=== PATIENT | male | born 1935 | race Caucasian/White ===

== ENCOUNTER 2016-06-01 00:04 | Emergency (ER) | payer OTHER ==
[~2016-06-01] VITALS: Ht 182.9 cm; Wt 69.0 kg
[~2016-06-01 00:04] MED LIST: ACET-1256 PO; ALPR-411 PO; ALPR0.25 PO; ASPI1TAB83 PO; CHOL100010 PO; CITA20TA9 PO; DOCU100C31 PO; DONE10TA12 PO; FLUC200T PO; HYDR-5688 PO; LPT/40 PO; QUET1TAB34 PO; SALI0.6517 NAE; SLSS TOP; SNM/25100 PO; TAMS0.4C38 PO
[2016-06-01 00:12] VITALS: TEMP 36.6; Ht 182.9 cm; Wt 69.0 kg
[2016-06-01] MEDS ORDERED: CHOL1000 PO (00:34)
[2016-06-01] MEDS ORDERED: SELE1SHA3 EXT (00:36)
[2016-06-01] MEDS ORDERED: PIMA17TA PO (00:40)
[2016-06-01] MEDS ORDERED: KETO0.0216 OPB (00:43)
[2016-06-01] MEDS ORDERED: SALI1SPR15 NAE (00:45)
[2016-06-01] MEDS ORDERED: MIRT15TA2 PO (00:46)
[2016-06-01] MEDS ORDERED: COCO1OIL2 EXT (00:51)
[2016-06-01] MEDS ORDERED: ACETAMINOPHEN 500 MG TAB PO STA (01:00)
[2016-06-01 01:33] LABS: BASO % 0.5 %; BASO ABS # 0.04 K/uL (0-0.2); COMPLETE YES; EOS % 2.6 %; HEMATOCRIT 39.7 % (42-52); IG% 0.3 %; LYMPH % 22.6 %; LYMPH ABS # 1.65 K/uL (1.2-3.4); MEAN CORPUSCULAR HEMOGLOBIN 31.1 pg (25-34); MEAN CORPUSCULAR HGB CONC 33.5 g/dl (32-36); MEAN PLATELET VOLUME 11.3 fL (7.4-10.4); MONO % 10.3 %; NEUT % 63.7 %; PLATELET COUNT 183 K/uL (130-400); RED BLOOD COUNT 4.27 M/uL (4.7-6.1); WHITE BLOOD COUNT 7.31 K/uL (4.8-10.8)
[2016-06-01 01:41] LABS: BUN/CREATININE RATIO 19.5 (10-20); CALCIUM 8.6 mg/dl (8.5-10.1); POTASSIUM 3.7 mmol/L (3.5-5.1)
--- NOTE | 2016-06-01 01:43 | EMERGENCY ROOM VISIT NOTE ---
History Report prepared by Anastasia: Blaire Simmons Under the Supervision of: Dr. Lucina Tejeda D.O. First contact with patient: 00:13 Chief Complaint: FALL Stated Complaint: FALL History of Present Illness The patient is an 80 year old male who presents to the Emergency Room with complaints of sudden unwitnessed fall occurring 1 hour [employer]. The patient's son states that the patient lives in a nursing care facility and has had 3 falls in the last week. He states that tonight the patient was trying to get into bed and fell and then was found by one of the caretakers at the facility. He states the patient was brought to the hospital because the patient fell and hit his head on a side table when falling and had abrasions to his hip and back. He states the patient fell onto a carpeted floor. The son states that he did not lose consciousness, and has not had any change in bowel movements or urinating, nausea or vomiting. He also states the patient does not take any blood thinners but recently changed his medications for his hallucinations 1 week ago. He states the patient has Parkinsons and suffers from hallucinations that have been worsening recently. Source of History: family (son ) Onset: 1 hour [employer] Position: other (global) Timing: other (sudden) Associated Symptoms: No LOC, No nausea, No urinary symptoms, No vomiting Note: Patient denies: change in bowel movements. Review of Systems See HPI for pertinent positives & negatives. A total of 10 systems reviewed and were otherwise negative. Past Medical & Surgical Medical Problems: (1) Hypertension (2) Parkinson's disease Family History Patient reports no known family medical history. Social History Smoking Status: Former Smoker Alcohol Use: none Drug Use: none Housing Status: assisted Occupation Status: retired Current/Historical Medications Scheduled Alprazolam (Xanax), 0.5 MG PO DAILY@1400 Alprazolam (Xanax), 0.25 MG PO DAILY@0800 Aspirin (Aspirin), 81 MG PO QAM Atorvastatin (Lipitor), 40 MG PO QAM Cholecalciferol (Vitamin D3), 1,000 UNITS PO DAILY Citalopram Hydrobromide (Celexa), 20 MG PO QAM Docusate Sodium (Docusate Sodium), 1 CAP PO BID Donepezil Hydrochloride (Aricept), 10 MG PO QAM Fluconazole (Diflucan), 200 MG PO WK Levodopa/Carbidopa (Sinemet 25MG/100MG), 2 TAB PO TID Mirtazapine Soltab (Remeron Soltab), 15 MG PO HS Pimavanserin Tartrate (Nuplazid), 17 MG PO BID Quetiapine Fumarate (Seroquel), 200 MG PO QPM Selenium Sulfide (Selsun Blue), 1 APPLN EXT 2XWK Tamsulosin Hcl (Flomax), 0.4 MG PO QAM Scheduled PRN Acetaminophen (Tylenol), 1,000 MG PO Q8 PRN for Pain or Fever Coconut Oil (Bulk) (Coconut Oil), 1 APPLN EXT HS PRN for DRYNESS Hydrocodone/Acetaminophen 5MG/325MG ([place] 5MG/325MG), 1 TABLET PO Q6 PRN for Pain Ketotifen Fumarate (Ophth) (Zaditor 0.025% Oph), 1 DROP OPB BID PRN for IRRITATION Saline (Saline Nasal [place] ), 1 SPRY KRISTINA TID PRN for DRYNESS Allergies Coded Allergies: Rofecoxib (Verified Allergy, Unknown, n/a, 06/01/16) Physical Exam Vital Signs Date Time Temp Pulse Resp B/P Pulse Ox O2 Delivery O2 Flow Rate FiO2 06/01/16 02:50 45 18 237/94 98 06/01/16 02:29 231/93 230/80 06/01/16 02:08 46 18 243/85 97 Room Air 06/01/16 00:12 36.6 46 17 185/76 98 Room Air Physical Exam General: Patient is pleasantly demented and confused HEENT: Head - normocephalic and atraumatic. Pupils are equal, round, and reactive to light. Extraocular eye muscles are intact and sclera are anicteric. Ears - bilaterally patent canals with no evidence of hemotympanum. Nose - moist nasal mucosa without evidence of trauma or discharge. Mouth - moist buccal mucosa with no trauma to the teeth or signs of malocclusion. Neck: The neck is supple and there is no pain to palpation over the posterior cervical spine and no obvious step-offs or deformities. There is no JVD or tracheal deviation. Chest: There are no signs of deformities, contusions or abrasions to the chest wall. There is no obvious crepitus or paradoxical chest rise. Heart: Bradycardic rate and regular rhythm. There is a normal S1 and S2 with no murmurs, clicks, or gallops appreciated. Lungs: Clear to auscultation bilaterally with no wheezes, rales, or rhonchi. Abdomen: Soft, completely nontender, nondistended, with good bowel sounds. There is no sign of trauma such as contusions, abrasions or penetrations. There are no palpable pulsatile masses or hepatosplenomegaly. There is no guarding, rigidity, or rebound noted. Pelvis: Stable to rock and compression.Abrasion and contusion on posterior aspect of left hip. Extremities: No obvious trauma, deformities, contusions, or edema. There are easily palpable peripheral pulses. Neuro: The patient is awake and alert and easily able to follow commands. Muscle strength is 5 out of 5 in all 4 extremities. Otherwise, neuro exam is unremarkable. Back: The entire thoracic, lumbar, and sacral spine were palpated. There are no obvious step-offs or deformities noted. Small abrasion to the base of the right back. Skin: Dry skin with poor turgor. Medical Decision & Procedures ER Provider Diagnostic Interpretation: X-ray results as stated below per interpretation by me and the radiologist: Left Hip: Significant degenerative change. No fracture Left Pelvis: Moderate osteoporosis. No fracture. Laboratory Results 06/01/16 01:13 Red Blood Count 4.27, Mean Corpuscular Volume 93.0, Mean Corpuscular Hemoglobin 31.1, Mean Corpuscular Hemoglobin Concent 33.5, Mean Platelet Volume 11.3, Neutrophils (%) (Auto) 63.7, Lymphocytes (%) (Auto) 22.6, Monocytes (%) (Auto) 10.3, Eosinophils (%) (Auto) 2.6, Basophils (%) (Auto) 0.5, Neutrophils # (Auto ) 4.66, Lymphocytes # (Auto) 1.65, Monocytes # (Auto) 0.75, Eosinophils # (Auto ) 0.19, Basophils # (Auto) 0.04 06/01/16 01:13 Test 06/01/16 01:13 06/01/16 02:19 White Blood Count 7.31 K/uL (4.8-10.8) Red Blood Count 4.27 M/uL (4.7-6.1) Hemoglobin 13.3 g/dL (14.0-18.0) Hematocrit 39.7 % (42-52) Mean Corpuscular Volume 93.0 fL (80-100) Mean Corpuscular Hemoglobin 31.1 pg (25-34) Mean Corpuscular Hemoglobin Concent 33.5 g/dl (32-36) Platelet Count 183 K/uL (130-400) Mean Platelet Volume 11.3 fL (7.4-10.4) Neutrophils (%) (Auto) 63.7 % Lymphocytes (%) (Auto) 22.6 % Monocytes (%) (Auto) 10.3 % Eosinophils (%) (Auto) 2.6 % Basophils (%) (Auto) 0.5 % Neutrophils # (Auto) 4.66 K/uL (1.4-6.5) Lymphocytes # (Auto) 1.65 K/uL (1.2-3.4) Monocytes # (Auto) 0.75 K/uL (0.11-0.59) Eosinophils # (Auto) 0.19 K/uL (0-0.5) Basophils # (Auto) 0.04 K/uL (0-0.2) RDW Standard Deviation 48.9 fL (36.4-46.3) RDW Coefficient of Variation 14.3 % (11.5-14.5) Immature Granulocyte % (Auto) 0.3 % Immature Granulocyte # (Auto) 0.02 K/uL (0.00-0.02) Anion Gap 6.0 mmol/L (3-11) Est Creatinine Clear Calc Drug Dose 56.5 ml/min Estimated GFR () 81.4 Estimated GFR (Non- 70.3 BUN/Creatinine Ratio 19.5 (10-20) Calcium Level 8.6 mg/dl (8.5-10.1) Total Bilirubin 0.4 mg/dl (0.2-1) Direct Bilirubin 0.1 mg/dl (0-0.2) Aspartate Amino Transf (AST/SGOT) 27 U/L (15-37) Alanine Aminotransferase (ALT/SGPT) 11 U/L (12-78) Alkaline Phosphatase 120 U/L (45-117) Total Protein 6.2 gm/dl (6.4-8.2) Albumin 3.2 gm/dl (3.4-5.0) Urine Color YELLOW Urine Appearance CLEAR (CLEAR) Urine pH 6.0 (4.5-7.5) Urine Specific [place] 1.021 (1.000-1.030) Urine Protein NEG (NEG) Urine Glucose (UA) NEG (NEG) Urine Ketones NEG (NEG) Urine Occult Blood NEG (NEG) Urine Nitrite NEG (NEG) Urine Bilirubin NEG (NEG) Urine Urobilinogen NEG (NEG) Urine Leukocyte Esterase TRACE (NEG) Urine WBC (Auto) 1-5 /hpf (0-5) Urine RBC (Auto) 0-4 /hpf (0-4) Urine Hyaline Casts (Auto) 1-5 /lpf (0-5) Urine Epithelial Cells (Auto) 5-10 /lpf (0-5) Urine Bacteria (Auto) NEG (NEG) Laboratory results per my review. Medications Administered Medications (Trade) Dose Ordered Sig/Marycruz Route Start Time Stop Time Status Last Admin Dose Admin Acetaminophen (Tylenol Tab) 1,000 mg NOW STAT PO 06/01/16 01:00 06/01/16 01:01 DC 06/01/16 01:17 1,000 MG ECG Indication: other (fall ) Rate (beats per minute): 44 Rhythm: sinus bradycardia Findings: no acute ischemic change, no ectopy ED Course 0018:At this time the patient was evaluated by the medical student. The student s findings were discussed with me. We discussed a possible treatment plan and differential diagnoses for the patient 0051: Past medical records reviewed. The patient was evaluated in room B3B. A complete history and physical exam was performed. The patient's son was in the room and states that the patient's mental status now is better than normal and that he is normally hallucinating. 0100: Ordered Tylenol Tab 1,000 mg PO. For his diffuse body ache. Laboratory studies were drawn. The patient went for plain films of his pelvis and left hip as described above. 0231: Upon reevaluation, the patient is resting comfortably. I discussed findings and results with him and his son. They verbalized agreement of the treatment plan. The patient was discharged back to [facility]. Medical Decision The patient is a 80 year old male who presents to the ED with fall. Differential diagnosis includes UTI, exacerbation of chronic falls, weakness, hip fracture. Labs: Normal White Count Hemoglobin 13.3 Glucose 85 BUN 19 Creatinine 19 Alk Phos slightly elevated other LFTs are normal. This is an 80-year-old male patient who presents to the emergency department from the [facility] after suffering a fall. It seems that he fell onto a side table. He is complaining of some discomfort in his right low back and his left hip. X-rays were unremarkable. The patient had no hematuria. He is given Tylenol for pain with some improvement. The patient's son explains that the patient quite often hallucinates and is currently on any medication that he does not believe is helping. I've asked him to follow up with her primary care doc. I've also suggested that they take extreme measures to prevent the patient from falling Impression Primary Impression: Fall Additional Impression: Contusion of hip, left Scribe Attestation The scribe's documentation has been prepared under my direction and personally reviewed by me in its entirety. I confirm that the note above accurately reflects all work, treatment, procedures, and medical decision making performed by me. Departure Information Dispostion Home / Self-Care Referrals Micheal Harrington M.D. (PCP) Forms HOME CARE DOCUMENTATION FORM, IMPORTANT VISIT INFORMATION Patient Instructions My [facility] Additional Instructions Move slowly to prevent falls. Watch BP closely over next 2-3 days Follow up with PCP if it remains elevated. Problem Qualifiers
[2016-06-01 02:50] VITALS: BP 237/94; PULSE 45; O2SAT 98
[2016-06-01 02:53] LABS: URINE APPEARANCE CLEAR (CLEAR); URINE BILIRUBIN NEG (NEG); URINE COLOR YELLOW; URINE NITRITE NEG (NEG); URINE SPECIFIC GRAVITY 1.021 (1.000-1.030); UROBILINOGEN NEG (NEG)
[2016-06-01 02:54] LABS: MANUAL MICROSCOPIC REQUIRED? NO; REVIEW REQ? NO
--- NOTE | 2016-06-01 06:39 | DIAGNOSTIC IMAGING REPORT ---
AP PELVIS AND LEFT HIP 3 VIEWS CLINICAL HISTORY: Left hip pain COMPARISON STUDY: No previous studies for comparison. FINDINGS: There are moderate osteoarthritic changes present within the left hip with joint space narrowing and osteophyte formation. There are postsurgical changes present within the lumbar spine. No acute fractures are visualized. No destructive lesions are evident. Mild osteoarthritic changes are present within the right hip. IMPRESSION: No acute fractures. 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 06/01/2016 6:38 AM Dictated Date/Time: 06/01/2016 6:37 AM
[2016-08-14] MEDS ORDERED: BISA10SU38 PR (09:36)
[2016-08-14] MEDS ORDERED: HYDR-5688 PO (09:36)
[2016-08-14] MEDS ORDERED: ZYP25 PO ×2 (09:36)
[2016-08-14] MEDS ORDERED: LSN20 PO (09:36)
[2016-08-14] MEDS ORDERED: [UNRECOGNIZED DRUG - CODE] SL (10:40)
== END 2016-06-01 02:50 | disposition home or self-care (01) ==
LOC: EDBD 00:04 → C.EDB 00:07
DX: S70.02XA Contusion of left hip, initial encounter (principal); W19.XXXA Unspecified fall, initial encounter; I10 Essential (primary) hypertension; G20 Parkinson's disease; Z87.891 Personal history of nicotine dependence

== ENCOUNTER 2016-07-02 22:06 | Emergency (ER) | payer OTHER ==
[~2016-07-02] VITALS: Ht 182.9 cm; Wt 65.1 kg
[~2016-07-02 22:06] MED LIST changes: +CHOL1000 PO; -CHOL100010 PO; +COCO1OIL2 EXT; +KETO0.0216 OPB; +MIRT15TA2 PO; +PIMA17TA PO; -SALI0.6517 NAE; +SALI1SPR15 NAE; +SELE1SHA3 EXT; -SLSS TOP
[2016-07-02 22:23] VITALS: TEMP 36.5; Ht 182.9 cm; Wt 65.1 kg
--- NOTE | 2016-07-02 23:17 | EMERGENCY ROOM VISIT NOTE ---
History Report prepared by Anastasia: Concepción Baker Under the Supervision of: Dr. Cr David M.D. 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 The patient came to the ED via ambulance from the [facility]. intermediate staff found the patient on the floor and he was complaining of right hip pain. It is unknown how long the patient was on the floor. The patient states that he "tumbled" into a waste basket and fell onto his side. The patient is experiencing some abdominal pain, but he states that is normal for him. The patient's son states that this is the patient's second fall in one week. Source of History: patient, family (son) Onset: ADMINISTRATIVE ASSISTANT DATA ENTRY Position: other (right hip) Quality: other (fall) Timing: other (sudden) Associated Symptoms: + abdominal pain (normal for him) Note: right hip pain Review of Systems See HPI for pertinent positives & negatives. A total of 10 systems reviewed and were otherwise negative. Past Medical & Surgical Medical Problems: (1) Hypertension (2) Parkinson's disease Family History Patient reports no known family medical history. Social History Smoking Status: Former Smoker Alcohol Use: none Drug Use: none Housing Status: custodial Occupation Status: retired Current/Historical Medications Scheduled Alprazolam (Xanax), 0.5 MG PO DAILY@1400 Alprazolam (Xanax), 0.25 MG PO DAILY@0800 Aspirin (Aspirin), 81 MG PO QAM Atorvastatin (Lipitor), 40 MG PO QAM Cholecalciferol (Vitamin D3), 1,000 UNITS PO DAILY Citalopram Hydrobromide (Celexa), 20 MG PO QAM Docusate Sodium (Docusate Sodium), 1 CAP PO BID Donepezil Hydrochloride (Aricept), 10 MG PO QAM Fluconazole (Diflucan), 200 MG PO WK Levodopa/Carbidopa (Sinemet 25MG/100MG), 2 TAB PO TID Mirtazapine Soltab (Remeron Soltab), 15 MG PO HS Pimavanserin Tartrate (Nuplazid), 17 MG PO DAILY Quetiapine Fumarate (Seroquel), 200 MG PO QPM Quetiapine Fumarate (Seroquel), 50 MG PO BID Selenium Sulfide (Selsun Blue), 1 APPLN EXT 2XWK Tamsulosin Hcl (Flomax), 0.4 MG PO QAM Scheduled PRN Acetaminophen (Tylenol), 1,000 MG PO Q8 PRN for Pain or Fever Alprazolam (Xanax), 0.25 MG PO Q8 PRN for Anxiety Hydrocodone/Acetaminophen 5MG/325MG ([place] 5MG/325MG), 1 TABLET PO Q6 PRN for Pain Ketotifen Fumarate (Ophth) (Zaditor 0.025% Oph), 1 DROP OPB BID PRN for IRRITATION Saline (Saline Nasal [place] ), 1 SPRY KRISTINA TID PRN for DRYNESS Allergies Coded Allergies: Rofecoxib (Verified Allergy, Unknown, n/a, 07/02/16) Physical Exam Vital Signs Date Time Temp Pulse Resp B/P Pulse Ox O2 Delivery O2 Flow Rate FiO2 07/03/16 00:53 53 18 197/86 98 07/02/16 22:23 36.5 50 16 220/92 97 Room Air Physical Exam GENERAL: Patient is a healthy-appearing well-nourished male. HEAD: Normocephalic atraumatic EYES: Ocular movements intact pupils equal and react to light OROPHARYNX mucous membranes are moist no exudates present no erythema or edema present NECK: Supple no nuchal rigidity CHEST: Good equal expansion LUNGS: Clear and equal to auscultation CARDIAC: Normal S1 and S2 ABDOMEN: Soft nontender no guarding BACK: No CVA tenderness EXTREMITIES: Good range of motion bilaterally of hips no pain upon palpation normal muscle strength in all groups no clubbing cyanosis or edema NEURO: Patient is following commands is answering questions appropriately. Alert and oriented x3 Cranial Nerves 2-12 grossly intact GCS: 15 Medical Decision & Procedures ER Provider Diagnostic Interpretation: X-ray results as stated below per interpretation by me: Pelvis X-ray 1 view: MY IMPRESSION: No evidence of fracture, dislocation, or subluxation. Femur X-ray 2 views: MY IMPRESSION: No evidence of fracture, dislocation, or subluxation. ED Course 2311: Past medical records reviewed. The patient was evaluated in room B6. A complete history and physical examination was performed. 2345: Upon reexamination the patient is doing well. I discussed results and treatment plan with the patient. He verbalizes agreement and understanding. The patient is ready for discharge. Medical Decision Differential diagnosis: Etiologies such as fracture, dislocation, intra-abdominal, pneumothorax, intrathoracic , intracranial, neurologic, as well as other traumatic pathologies were entertained. This is an 81-year-old male who presents emergency department complaining of a fall. Upon arrival to the emergency department the patient has no complaints. There is concern that the patient was having hip pain however the patient has good range of motion of hip the leg is not externally rotated or discolored or shortened. He has good positive distal pulses. X-rays do not show any evidence of fracture dislocation. I believe the patient as well as to be discharged home. The patient was ambulated here in the emergency department. Patient and family were in agreement with the treatment plan. Impression Primary Impression: Fall Scribe Attestation The scribe's documentation has been prepared under my direction and personally reviewed by me in its entirety. I confirm that the note above accurately reflects all work, treatment, procedures, and medical decision making performed by me. Departure Information Dispostion Home / Self-Care Referrals Micheal Harrington M.D. (PCP) Patient Instructions ED Fall Dizziness Weakn Balance, My [facility] Additional Instructions You have been examined and treated today on an emergency basis only. This is not a substitute for, or an effort to provide, complete comprehensive medical care. It is impossible to recognize and treat all injuries or illnesses in a single emergency department visit. It is therefore important that you follow up closely with Dr Harrington. Call as soon as possible for an appointment. Thank you for your time and consideration. I look forward to speaking with you again soon. Please don't hesitate to call us if you have any questions. Problem Qualifiers Primary Impression: Fall Encounter type: initial encounter Qualified Codes: W19.XXXA - Unspecified fall, initial encounter
[2016-07-02] MEDS ORDERED: QUET1TAB32 PO (23:50)
[2016-07-02] MEDS ORDERED: ALPR0.25 PO (23:55)
[2016-07-03 00:53] VITALS: BP 197/86; PULSE 53; O2SAT 98
--- NOTE | 2016-07-03 06:30 | DIAGNOSTIC IMAGING REPORT ---
PELVIS 1 OR 2 VIEW ROUTINE CLINICAL HISTORY: Pt c/o Rt hip pain pain COMPARISON: None. DISCUSSION: Moderate degenerative changes of the hips bilaterally. No evidence for acetabular protrusion. Postoperative changes with decompression laminectomy of the low lumbar spine. Moderate degenerative change sacroiliac joints. There is no evidence for soft tissue swelling. IMPRESSION: Degenerative change. No acute process. Electronically signed by: Micheal Huitron M.D. 07/03/2016 6:29 AM Dictated Date/Time: 07/03/2016 6:29 AM
--- NOTE | 2016-07-03 06:32 | DIAGNOSTIC IMAGING REPORT ---
RIGHT FEMUR 2 VIEWS ROUTINE CLINICAL HISTORY: Pt c/o Rt hip pain Right pain COMPARISON: None. DISCUSSION: Moderate degenerative change right hip as well as right knee. No well-defined acute bony abnormality. No evidence for acetabular protrusion. Soft tissue vascular calcifications. There is no evidence for soft tissue swelling. IMPRESSION: Degenerative change. No acute bony antibody. Electronically signed by: Micheal Huitron M.D. 07/03/2016 6:30 AM Dictated Date/Time: 07/03/2016 6:30 AM
[2016-08-14] MEDS ORDERED: LSN20 PO (09:36)
[2016-08-14] MEDS ORDERED: ZYP25 PO ×2 (09:36)
[2016-08-14] MEDS ORDERED: BISA10SU38 PR (09:36)
[2016-08-14] MEDS ORDERED: HYDR-5688 PO (09:36)
[2016-08-14] MEDS ORDERED: [UNRECOGNIZED DRUG - CODE] SL (10:40)
== END 2016-07-03 00:54 | disposition home or self-care (01) ==
LOC: EDBD 22:06 → C.EDB 22:07
DX: M54.9 Dorsalgia, unspecified (principal); W19.XXXA Unspecified fall, initial encounter; I10 Essential (primary) hypertension; G20 Parkinson's disease; Z87.891 Personal history of nicotine dependence; Z79.82 Long term (current) use of aspirin

== ENCOUNTER 2016-08-10 15:10 | Observation (INO) | payer OTHER ==
[~2016-08-10] VITALS: Ht 170.2 cm; Wt 63.9 kg
[~2016-08-10 15:10] MED LIST changes: -COCO1OIL2 EXT; +QUET1TAB32 PO
--- NOTE | 2016-08-10 15:28 | EMERGENCY ROOM VISIT NOTE ---
History Report prepared by Anastasia: Deon Lyons Under the Supervision of: Dr. Stephen Fierro D.O. First contact with patient: 15:16 Stated Complaint: FALL, HEMATOMA, AGITATION History of Present Illness The patient is an 81 year old demented male who presents to the Emergency Room with worsening generalized weakness for the past 48 hours. The patient came from a retirement, where he has been falling frequently per nursing staff. He has also been becoming increasingly aggressive. He has a history of Parkinson's Disease. He reportedly stopped taking Seroquel abruptly several weeks ago. The patient denies any pain. History is limited secondary to dementia. Source of History: patient, nursing staff History Limited By: dementia Onset: 48 hours Position: other (generalized) Quality: other (weakness) Timing: worsening Review of Systems ROS is limited secondary to dementia. Past Medical & Surgical Medical Problems: (1) Agitation (2) Hypertension (3) Parkinson's disease Family History Patient reports no known family medical history. Social History Smoking Status: Former Smoker Alcohol Use: none Drug Use: none Housing Status: retirement Occupation Status: retired Current/Historical Medications Scheduled Alprazolam (Xanax), 0.5 MG PO DAILY@1400 Alprazolam (Xanax), 0.25 MG PO DAILY@0800 Cholecalciferol (Vitamin D3), 1,000 UNITS PO DAILY Citalopram Hydrobromide (Celexa), 20 MG PO QAM Docusate Sodium (Docusate Sodium), 1 CAP PO BID Fluconazole (Diflucan), 200 MG PO WK Levodopa/Carbidopa (Sinemet 25MG/100MG), 2 TAB PO TID Mirtazapine Soltab (Remeron Soltab), 15 MG PO HS Selenium Sulfide (Selsun Blue), 1 APPLN EXT 2XWK Tamsulosin Hcl (Flomax), 0.4 MG PO QAM Scheduled PRN Acetaminophen (Tylenol), 1,000 MG PO Q8 PRN for Pain or Fever Alprazolam (Xanax), 0.25 MG PO Q8 PRN for Anxiety Hydrocodone/Acetaminophen 5MG/325MG ([place] 5MG/325MG), 1 TABLET PO Q6 PRN for Pain Ketotifen Fumarate (Ophth) (Zaditor 0.025% Oph), 1 DROP OPB BID PRN for IRRITATION Saline (Saline Nasal Scheller Infant), 1 SPRY KRISTINA TID PRN for DRYNESS Allergies Coded Allergies: Rofecoxib (Verified Allergy, Unknown, n/a, 08/10/16) Physical Exam Vital Signs Date Time Temp Pulse Resp B/P Pulse Ox O2 Delivery O2 Flow Rate FiO2 08/10/16 21:20 56 12 178/87 100 Room Air 08/10/16 19:46 57 08/10/16 19:30 58 16 169/87 98 Room Air 08/10/16 17:35 63 18 167/83 100 Room Air 08/10/16 16:38 202/72 08/10/16 16:31 66 22 207/90 100 Room Air 08/10/16 15:35 58 08/10/16 15:34 96 Room Air 08/10/16 15:34 96 Room Air 08/10/16 15:22 36.7 96 17 140/106 96 Room Air Physical Exam GENERAL: Patient is awake, alert, non-anxous appearing. EYES: The conjunctivae are clear. The pupils are round and reactive. EARS, NOSE, MOUTH AND THROAT: The nose is without any evidence of any deformity. Mucous membranes are moist tongue is midline NECK: The neck is nontender and supple. RESPIRATORY: Normal respiratory effort is noted there is no evidence of wheezing rhonchi or rales CARDIOVASCULAR: Regular rate and rhythm noted there no murmurs rubs or gallops normal S1 normal S2 GASTROINTESTINAL: The abdomen is soft. Bowel sounds are present in all quadrants. Abdomen is nontender BACK: No midline tenderness or or step-off noted range of motion in flexion extension as well as rotation no signs of muscle spasm noted MUSCULOSKELETAL/EXTREMITIES: There is no evidence of gross deformity full range of motion is noted in the hips and shoulders SKIN: There is trace pedal edema bilaterally, skin is warm and dry. NEUROLOGIC: Patient is oriented to person but not place time or situation. Strength is symmetric but diminished. Medical Decision & Procedures ER Provider Diagnostic Interpretation: Radiology results as stated below per my review and radiologist interpretation: CERVICAL SPINE CT CT DOSE: HISTORY: Trauma fall TECHNIQUE: Multiaxial CT images of the cervical spine were performed and reformatted in the sagittal and coronal plane without the use of contrast. COMPARISON: None. FINDINGS: No fractures. No subluxation. Prevertebral soft tissues and the C1-C2 interval are intact. No pneumothorax. Degenerative disc change throughout the entire cervical region. Degenerative changes of posterior elements and lateral facets throughout. IMPRESSION: No fractures within the cervical spine. Degenerative change. Electronically signed by: Micheal Huitron M.D. 08/10/2016 4:22 PM Dictated Date/Time: 08/10/2016 4:21 PM CHEST ONE VIEW PORTABLE CLINICAL HISTORY: EVALUATE ALTERED MENTAL STATUS/WEAKNESS dyspnea COMPARISON STUDY: 12/05/2015 FINDINGS: The bones soft tissues and hemidiaphragms are normal. The cardiomediastinal silhouette is normal. The lungs are clear. The pulmonary vasculature is normal. IMPRESSION: Negative chest. Electronically signed by: Micheal Huitron M.D. 08/10/2016 4:02 PM Dictated Date/Time: 08/10/2016 4:[address] CT DOSE: 1091.73 mGy.cm HISTORY: EVALUATE ALTERED MENTAL STATUS/WEAKNESS TECHNIQUE: Multiaxial CT images of the head were performed without the use of intravenous contrast. Automated exposure control was utilized for this study. Comparison: Head CT 12/15/2015. Findings: The paranasal sinuses and mastoid air cells are clear. The calvarium and skull base are intact. There is no mass, hematoma, midline shift, acute infarct. White matter hypodensity is nonspecific but suggestive of microvascular ischemic change. The ventricles and sulci demonstrate mild age-related involutional changes. There are old bilateral basal ganglia lacunar infarcts. These are new from the prior study. Impression: No acute intracranial abnormality. Atrophy and microvascular ischemic changes. Old bilateral basal ganglia lacunar infarcts which are new from the prior study. Electronically signed by: Edgardo Johansen M.D. 08/10/2016 4:27 PM Dictated Date/Time: 08/10/2016 4:13 PM Laboratory Results 08/10/16 15:35 Red Blood Count 3.97, Mean Corpuscular Volume 92.7, Mean Corpuscular Hemoglobin 31.0, Mean Corpuscular Hemoglobin Concent 33.4, Mean Platelet Volume 11.0, Neutrophils (%) (Auto) 72.1, Lymphocytes (%) (Auto) 14.2, Monocytes (%) (Auto) 12.3, Eosinophils (%) (Auto) 0.8, Basophils (%) (Auto) 0.3, Neutrophils # (Auto ) 5.56, Lymphocytes # (Auto) 1.09, Monocytes # (Auto) 0.95, Eosinophils # (Auto ) 0.06, Basophils # (Auto) 0.02 08/10/16 15:35 Test 08/10/16 15:35 08/10/16 15:43 White Blood Count 7.70 K/uL (4.8-10.8) Red Blood Count 3.97 M/uL (4.7-6.1) Hemoglobin 12.3 g/dL (14.0-18.0) Hematocrit 36.8 % (42-52) Mean Corpuscular Volume 92.7 fL (80-100) Mean Corpuscular Hemoglobin 31.0 pg (25-34) Mean Corpuscular Hemoglobin Concent 33.4 g/dl (32-36) Platelet Count 213 K/uL (130-400) Mean Platelet Volume 11.0 fL (7.4-10.4) Neutrophils (%) (Auto) 72.1 % Lymphocytes (%) (Auto) 14.2 % Monocytes (%) (Auto) 12.3 % Eosinophils (%) (Auto) 0.8 % Basophils (%) (Auto) 0.3 % Neutrophils # (Auto) 5.56 K/uL (1.4-6.5) Lymphocytes # (Auto) 1.09 K/uL (1.2-3.4) Monocytes # (Auto) 0.95 K/uL (0.11-0.59) Eosinophils # (Auto) 0.06 K/uL (0-0.5) Basophils # (Auto) 0.02 K/uL (0-0.2) RDW Standard Deviation 50.0 fL (36.4-46.3) RDW Coefficient of Variation 14.7 % (11.5-14.5) Immature Granulocyte % (Auto) 0.3 % Immature Granulocyte # (Auto) 0.02 K/uL (0.00-0.02) Prothrombin Time 11.3 SECONDS (9.0-12.0) Prothromb Time International Ratio 1.1 (0.9-1.1) Activated Partial Thromboplast Time 25.2 SECONDS (21.0-31.0) Partial Thromboplastin Ratio 1.0 Anion Gap 7.0 mmol/L (3-11) Est Creatinine Clear Calc Drug Dose 57.8 ml/min Estimated GFR () 92.3 Estimated GFR (Non- 79.6 BUN/Creatinine Ratio 18.7 (10-20) Calcium Level 8.9 mg/dl (8.5-10.1) Phosphorus Level 2.3 mg/dl (2.5-4.9) Magnesium Level 2.0 mg/dl (1.8-2.4) Total Bilirubin 1.0 mg/dl (0.2-1) Direct Bilirubin 0.3 mg/dl (0-0.2) Aspartate Amino Transf (AST/SGOT) 20 U/L (15-37) Alanine Aminotransferase (ALT/SGPT) 10 U/L (12-78) Alkaline Phosphatase 105 U/L (45-117) Total Creatine Kinase 167 U/L (39-308) Creatine Kinase MB 4.7 ng/ml (0.5-3.6) Creatine Kinase MB Ratio 2.8 (0-3.0) Troponin I < 0.015 ng/ml (0-0.045) Total Protein 6.0 gm/dl (6.4-8.2) Albumin 3.4 gm/dl (3.4-5.0) Lipase 68 U/L (73-393) Thyroid Stimulating Hormone (TSH) 1.100 uIu/ml (0.300-4.500) Bedside Glucose 92 mg/dl (70-99) Laboratory results per my review. ECG Indication: diaphoresis, weakness Rate (beats per minute): 53 Rhythm: sinus bradycardia Findings: no acute ischemic change, no ectopy ED Course 1520: The patient was evaluated in room B6. A complete history and physical examination were performed. 1909: Updated the patient. 1913: [facility] The [facility] will be evaluated. Medical Decision Prior records/ancillary studies reviewed and summarized above. Nursing notes reviewed. Additional history obtained from nursing staff.. Differential diagnosis: Etiologies such as metabolic, infection, hypo/hyperglycemia, electrolyte abnormalities, cardiac sources, intracerebral event, toxicologic, neurologic, as well as others were entertained. The patient is an 81-year-old male who presented to the emergency department from a [facility]. The patient has been having problems with dementia and frequent falls and aggressive behavior. He was felt to be a poor candidate to stay at the personal [facility]. He was sent to the emergency department for possible further evaluation. The patient was not found to have any traumatic injury. I discussed the patient's laboratory and radiographic studies with him and his family member. I discussed his case with the emergency Department case operator. I also discussed his case with the on-call [facility] hospitalist group. They've agreed to evaluate the patient in emergency department for further management and disposition. Consults Time Called: 1904 [facility] Returned Call: 1913 1913: [facility] The patient will be evaluated. Impression Primary Impression: Dementia Additional Impressions: Aggressive behavior Frequent falls Scribe Attestation The scribe's documentation has been prepared under my direction and personally reviewed by me in its entirety. I confirm that the note above accurately reflects all work, treatment, procedures, and medical decision making performed by me. Departure Information Dispostion Being Evaluated By Hospitalist Referrals Micheal Hrarington M.D. (PCP) Problem Qualifiers Primary Impression: Dementia Dementia type: unspecified type Dementia behavioral disturbance: with behavioral disturbance Qualified Codes: F03.91 - Unspecified dementia with behavioral disturbance
[2016-08-10 15:51] LABS: BASO % 0.3 %; BASO ABS # 0.02 K/uL (0-0.2); COMPLETE YES; EOS % 0.8 %; HEMATOCRIT 36.8 % (42-52); IG% 0.3 %; LYMPH % 14.2 %; LYMPH ABS # 1.09 K/uL (1.2-3.4); MEAN CELL VOLUME 92.7 fL (80-100); MEAN CORPUSCULAR HGB CONC 33.4 g/dl (32-36); MONO % 12.3 %; NEUT % 72.1 %; PLATELET COUNT 213 K/uL (130-400); RED BLOOD COUNT 3.97 M/uL (4.7-6.1)
[2016-08-10 16:00] LABS: INR 1.1 (0.9-1.1); PROTHROMBIN TIME (PATIENT) 11.3 SECONDS (9.0-12.0)
--- NOTE | 2016-08-10 16:04 | DIAGNOSTIC IMAGING REPORT ---
CHEST ONE VIEW PORTABLE CLINICAL HISTORY: EVALUATE ALTERED MENTAL STATUS/WEAKNESS dyspnea COMPARISON STUDY: 12/05/2015 FINDINGS: The bones soft tissues and hemidiaphragms are normal. The cardiomediastinal silhouette is normal. The lungs are clear. The pulmonary vasculature is normal. IMPRESSION: Negative chest. Electronically signed by: Micheal Huitron M.D. 08/10/2016 4:02 PM Dictated Date/Time: 08/10/2016 4:01 PM
[2016-08-10 16:09] LABS: ALT/SGPT 10 U/L (12-78); AST/SGOT 20 U/L (15-37); BLOOD UREA NITROGEN 17 mg/dl (7-18); BUN/CREATININE RATIO 18.7 (10-20); CALCIUM 8.9 mg/dl (8.5-10.1); CARBON DIOXIDE 28 mmol/L (21-32); CHLORIDE 108 mmol/L (98-107); CREATININE 0.89 mg/dl (0.60-1.40); GLUCOSE 100 mg/dl (70-99); SODIUM 143 mmol/L (136-145)
[2016-08-10 16:17] LABS: ALKALINE PHOSPHATASE 105 U/L (45-117); CKMB/CK RATIO 2.8 (0-3.0); PHOSPHORUS 2.3 mg/dl (2.5-4.9)
--- NOTE | 2016-08-10 16:24 | DIAGNOSTIC IMAGING REPORT ---
CERVICAL SPINE CT CT DOSE: HISTORY: Trauma fall TECHNIQUE: Multiaxial CT images of the cervical spine were performed and reformatted in the sagittal and coronal plane without the use of contrast. COMPARISON: None. FINDINGS: No fractures. No subluxation. Prevertebral soft tissues and the C1-C2 interval are intact. No pneumothorax. Degenerative disc change throughout the entire cervical region. Degenerative changes of posterior elements and lateral facets throughout. IMPRESSION: No fractures within the cervical spine. Degenerative change. Electronically signed by: Micheal Huitron M.D. 08/10/2016 4:22 PM Dictated Date/Time: 08/10/2016 4:21 PM
--- NOTE | 2016-08-10 16:29 | DIAGNOSTIC IMAGING REPORT ---
HEAD CT NONCONTRAST CT DOSE: 1091.73 mGy.cm HISTORY: EVALUATE ALTERED MENTAL STATUS/WEAKNESS TECHNIQUE: Multiaxial CT images of the head were performed without the use of intravenous contrast. Automated exposure control was utilized for this study. Comparison: Head CT 12/15/2015. Findings: The paranasal sinuses and mastoid air cells are clear. The calvarium and skull base are intact. There is no mass, hematoma, midline shift, acute infarct. White matter hypodensity is nonspecific but suggestive of microvascular ischemic change. The ventricles and sulci demonstrate mild age-related involutional changes. There are old bilateral basal ganglia lacunar infarcts. These are new from the prior study. Impression: No acute intracranial abnormality. Atrophy and microvascular ischemic changes. Old bilateral basal ganglia lacunar infarcts which are new from the prior study. Electronically signed by: Edgardo Johansen M.D. 08/10/2016 4:27 PM Dictated Date/Time: 08/10/2016 4:13 PM
[2016-08-10] MEDS ORDERED: QUET1TAB32 PO (16:55)
[2016-08-10] MEDS ORDERED: QUET1TAB30 PO (16:55)
--- NOTE | 2016-08-10 21:23 | History and Physical ---
History & Physical Date & Time of Service: Aug 10, 2016 at 20:34 Chief Complaint: Fall, Hematoma, Agitation Primary Care Physician: Micheal Harrington M.D. History of Present Illness Source: patient This is an 81 y/o male with PMHx of Parkinson's Dz, HTN, Dyslipidemia and other problems as outlined below who presents to the ED from the [facility] due to increasing generalized weakness for 1 week. History is obtained from daughter at bedside as patient is unable to provide history due to dementia. Per daughter, patient was placed on hospice 2 weeks ago to assist with additional care at the [facility]. Patient has been slowly declining from his Parkinson's however daughter has noticed a significantly decline in the past month. This week patient was noted to be more weak than usual. Pt refuses to use assistive devices for ambulation and reportedly fell 3 times today. In addition, patient has had episodes of aggression over the past couple days. Today when he fell, he refused to let nursing staff help him up and began banging his head on the table. Pt's medications were recently adjusted. Seroquel , Aricept, Lipitor and ASA were all discontinued on 07/25/16. He has not been started on any new medications. Unable to obtain ROS due to patient's dementia. In the ED, BP is elevated. Pt is afebrile with no leukocytosis. HgB 12.3. Trop negative and EKG unchanged. C-spine and Head CT are negative. CXR negative for acute process. Pt is stable and will be admitted. Past Medical/Surgical History Medical Problems: (1) Hypertension Status: Chronic (2) Parkinson's disease Status: Chronic Family History Patient reports no known family medical history. Social History Smoking Status: Unknown if Ever Smoked Alcohol Use: none Drug Use: none Housing status: assisted living ([facility]) Occupational Status: retired Multi-Drug Resistant Organisms History of MDRO: No Allergies Coded Allergies: Rofecoxib (Verified Allergy, Unknown, n/a, 08/10/16) Home Medications Scheduled Alprazolam (Xanax), 0.5 MG PO DAILY@1400 Alprazolam (Xanax), 0.25 MG PO DAILY@0800 Cholecalciferol (Vitamin D3), 1,000 UNITS PO DAILY Citalopram Hydrobromide (Celexa), 20 MG PO QAM Docusate Sodium (Docusate Sodium), 1 CAP PO BID Fluconazole (Diflucan), 200 MG PO WK Levodopa/Carbidopa (Sinemet 25MG/100MG), 2 TAB PO TID Mirtazapine Soltab (Remeron Soltab), 15 MG PO HS Selenium Sulfide (Selsun Blue), 1 APPLN EXT 2XWK Tamsulosin Hcl (Flomax), 0.4 MG PO QAM Scheduled PRN Acetaminophen (Tylenol), 1,000 MG PO Q8 PRN for Pain or Fever Alprazolam (Xanax), 0.25 MG PO Q8 PRN for Anxiety Hydrocodone/Acetaminophen 5MG/325MG ([place] 5MG/325MG), 1 TABLET PO Q6 PRN for Pain Ketotifen Fumarate (Ophth) (Zaditor 0.025% Oph), 1 DROP OPB BID PRN for IRRITATION Saline (Saline Nasal Forbes Infant), 1 SPRY KRISTINA TID PRN for DRYNESS Review of Systems Unable to obtain ROS due to dementia Physical Exam Vital Signs Date Time Temp Pulse Resp B/P Pulse Ox O2 Delivery O2 Flow Rate FiO2 08/10/16 19:46 57 08/10/16 19:30 58 16 169/87 98 Room Air 08/10/16 17:35 63 18 167/83 100 Room Air 08/10/16 16:38 202/72 08/10/16 16:31 66 22 207/90 100 Room Air 08/10/16 15:35 58 08/10/16 15:34 96 Room Air 08/10/16 15:34 96 Room Air 08/10/16 15:22 36.7 96 17 140/106 96 Room Air General Appearance: WD/WN, no apparent distress, + pertinent finding (Pt is laying in position in bed with daughter at bedside) Head: normocephalic, atraumatic Eyes: normal inspection ENT: hearing grossly normal Neck: supple Respiratory/Chest: chest non-tender, lungs clear, + decreased breath sounds ( bilateral bases) Cardiovascular: regular rate, rhythm, no edema, no murmur Abdomen/GI: normal bowel sounds, non tender, soft Back: normal inspection Extremities/Musculoskelatal: normal inspection, no calf tenderness, no pedal edema Neurologic/Psych: + pertinent finding (mumbling nonsensical speech) Skin: normal color, warm/dry Diagnostics Laboratory Results Results Past 24 Hours Test 08/10/16 15:35 08/10/16 15:43 Range/Units White Blood Count 7.70 4.8-10.8 K/uL Red Blood Count 3.97 4.7-6.1 M/uL Hemoglobin 12.3 14.0-18.0 g/dL Hematocrit 36.8 42-52 % Mean Corpuscular Volume 92.7 80-100 fL Mean Corpuscular Hemoglobin 31.0 25-34 pg Mean Corpuscular Hemoglobin Concent 33.4 32-36 g/dl Platelet Count 213 130-400 K/uL Mean Platelet Volume 11.0 7.4-10.4 fL Neutrophils (%) (Auto) 72.1 % Lymphocytes (%) (Auto) 14.2 % Monocytes (%) (Auto) 12.3 % Eosinophils (%) (Auto) 0.8 % Basophils (%) (Auto) 0.3 % Neutrophils # (Auto) 5.56 1.4-6.5 K/uL Lymphocytes # (Auto) 1.09 1.2-3.4 K/uL Monocytes # (Auto) 0.95 0.11-0.59 K/uL Eosinophils # (Auto) 0.06 0-0.5 K/uL Basophils # (Auto) 0.02 0-0.2 K/uL RDW Standard Deviation 50.0 36.4-46.3 fL RDW Coefficient of Variation 14.7 11.5-14.5 % Immature Granulocyte % (Auto) 0.3 % Immature Granulocyte # (Auto) 0.02 0.00-0.02 K/uL Prothrombin Time 11.3 9.0-12.0 SECONDS Prothromb Time International Ratio 1.1 0.9-1.1 Activated Partial Thromboplast Time 25.2 21.0-31.0 SECONDS Partial Thromboplastin Ratio 1.0 Sodium Level 143 136-145 mmol/L Potassium Level 4.0 3.5-5.1 mmol/L Chloride Level 108 98-107 mmol/L Carbon Dioxide Level 28 21-32 mmol/L Anion Gap 7.0 3-11 mmol/L Blood Urea Nitrogen 17 7-18 mg/dl Creatinine 0.89 0.60-1.40 mg/dl Est Creatinine Clear Calc Drug Dose 57.8 ml/min Estimated GFR () 92.3 Estimated GFR (Non- 79.6 BUN/Creatinine Ratio 18.7 10-20 Random Glucose 100 70-99 mg/dl Calcium Level 8.9 8.5-10.1 mg/dl Phosphorus Level 2.3 2.5-4.9 mg/dl Magnesium Level 2.0 1.8-2.4 mg/dl Total Bilirubin 1.0 0.2-1 mg/dl Direct Bilirubin 0.3 0-0.2 mg/dl Aspartate Amino Transf (AST/SGOT) 20 15-37 U/L Alanine Aminotransferase (ALT/SGPT) 10 12-78 U/L Alkaline Phosphatase 105 45-117 U/L Total Creatine Kinase 167 39-308 U/L Creatine Kinase MB 4.7 0.5-3.6 ng/ml Creatine Kinase MB Ratio 2.8 0-3.0 Troponin I < 0.015 0-0.045 ng/ml Total Protein 6.0 6.4-8.2 gm/dl Albumin 3.4 3.4-5.0 gm/dl Lipase 68 73-393 U/L Thyroid Stimulating Hormone (TSH) 1.100 0.300-4.500 uIu/ml Bedside Glucose 92 70-99 mg/dl Diagnostic Radiology C-SPINE CT IMPRESSION: No fractures within the cervical spine. Degenerative change. CT HEAD IMPRESSION: No acute intracranial abnormality. Atrophy and microvascular ischemic changes. Old bilateral basal ganglia lacunar infarcts which are new from the prior study. CXR IMPRESSION: Negative chest EKG EKG: sinus kristine at [address] and T wave changes in lateral leads; no significant changes noted when compared with EKG from 07/25/16 Impression Assessment and Plan GENERALIZED WEAKNESS/AMBULATORY DYSFUNCTION one week of progressively worsening generalized weakness with 3 falls today -observation to med/surg -no signs of infection; afebrile with no leukocytosis -C-spine and Head CT are negative -CXR: no acute process -UA uncollected -fall precautions -PT/OT evals -monitor INCREASING BEHAVIORAL DISTURBANCE WITH H/O PARKINSON'S DEMENTIA -recent medication adjustments; Seroquel and Aricept discontinued 07/25/16 -question if worsening agitation is medication related -cont Xanax PRN -cont Remeron and Sinemet -one-on-one observation -pt follows with neurology, Dr. Valdivia -monitor HTN -BP elevated in ED; trending down -not on any medications -start low dose lisinopril -monitor DYSLIPIDEMIA -diet-controlled DVT PROPHYLAXIS -subq Lovenox CODE STATUS -DNR per discussion with patient's daughter at bedside upon admission DISPO -Discharge eval placed. Patient will likely need placement. -Observation status until further workup is complete. Pt seen in collaboration with Dr. Singh. Please see his addendum for further details. Thanks! -Of note: patient will be followed by Dr. Hidalgo starting tomorrow AM. Assessment/Plan IM ATTENDING : Patient seen and examined. Preceding documentation by Ms. Pilar Green PA-C, reviewed. FINAL ASSESSMENT AND PLAN as follows: 1. Parkinson's dementia worsening agitation/need for supervision at the assisted living facility in the last few weeks rule out urinary tract infection 2. hypertensive urgency hx HTN, currently not on meds 3. past tobacco abuse 4. chronic anemia, hemoglobin of 12-13 at baseline. 5. Old CVA on CAT scan. Daughter is unaware of previous CVA diagnosis. home Aspirin was actually held by PCP on the last visit a few weeks ago, possibly due to increased fall frequency Observation GMF Check UA. initiate low dose Lisinopril. Resume ASA for secondary stroke prevention for now. Continue home Xanax; Ativan p.r.n. breakthrough agitation consider Zyprexa prn agitation not amenable to Ativan (Haldol can theoretically worsen Parkinson's dse) DVT prophylaxis, Lovenox subQ. PT OT eval Social service RE discharge planning. PX may need placement at a [facility] or dementia unit given patient's deterioration and increased need for supervision. DNR as per daughter/POA, Ms. Avani Culper She requests updates from providers at [phone].
[2016-08-10] MEDS ORDERED: LORAZEPAM 2 MG/ML 1 ML VIAL IV PRN (21:30)
[2016-08-10] MEDS ORDERED: ACETAMINOPHEN 325 MG TAB PO PRN (21:30)
[2016-08-10] MEDS ORDERED: ALPRAZOLAM 0.25 MG TAB PO PRN (21:30)
[2016-08-10] MEDS ORDERED: TRAMADOL HCL 50 MG TAB PO PRN (21:30)
[2016-08-10] MEDS ORDERED: IV FLUIDS COMPLETED PRN (21:45)
[2016-08-10] MEDS ORDERED: LISINOPRIL 5 MG TAB PO STA (22:02)
[2016-08-10 22:11] VITALS: BP 177/51; PULSE 54; TEMP 37.1; Ht 170.2 cm; Wt 63.9 kg
[2016-08-10] MEDS ORDERED: SODIUM CHLORIDE 0.45% 1000ML 1,000 ML IV ONE (22:15)
[2016-08-10] MEDS ORDERED: LORAZEPAM INJ 0.5 MG in SYRINGE 0.75 ML IV PRN (22:30)
[2016-08-10 22:36] VITALS: BP 177/51; TEMP 37.1; O2SAT 91
--- NOTE | 2016-08-11 00:13 | HISTORY & PHYSICAL EXAMINATION ---
DATE OF ADMISSION: 08/10/2016 PRIMARY CARE DOCTOR: Dr. Len HELMS ATTENDING : Patient seen and examined. Preceding documentation by Ms. Pilar Green PA-C, reviewed. FINAL ASSESSMENT AND PLAN as follows: 1. Parkinson's dementia worsening agitation/need for supervision at the assisted living facility in the last few weeks rule out urinary tract infection 2. hypertensive urgency hx HTN, currently not on meds 3. past tobacco abuse 4. chronic anemia, hemoglobin of 12-13 at baseline. 5. Old CVA on CAT scan. Daughter is unaware of previous CVA diagnosis. home Aspirin was actually held by PCP on the last visit a few weeks ago, possibly due to increased fall frequency Observation GMF Check UA. initiate low dose Lisinopril. Resume ASA for secondary stroke prevention for now. Continue home Xanax; Ativan p.r.n. breakthrough agitation consider Zyprexa prn agitation not amenable to Ativan Haldol contraindicated by Parkinson's dse DVT prophylaxis, Lovenox subQ. PT OT eval Social service RE discharge planning. PX may need placement at a [facility] or dementia unit given patient's deterioration and increased need for supervision. DNR as per daughter/POA, Avanipeter Spann She requests updates from providers at [phone]. MTDD
[2016-08-11 06:57] LABS: URINE APPEARANCE CLOUDY (CLEAR); URINE BILIRUBIN NEG (NEG); URINE COLOR YELLOW; URINE EPITHELIAL CELL AUTO 20-30 /lpf (0-5); URINE NITRITE NEG (NEG); URINE PH 7.5 (4.5-7.5); URINE SPECIFIC GRAVITY 1.016 (1.000-1.030); UROBILINOGEN NEG (NEG); ZZURINE CULT IF INDIC CATH NO
[2016-08-11 06:59] LABS: MANUAL MICROSCOPIC REQUIRED? NO; REVIEW REQ? NO
[2016-08-11] MEDS ORDERED: ALPRAZOLAM 0.25 MG TAB PO SCH (08:00)
[2016-08-11 08:04] LABS: BASO % 0.2 %; BASO ABS # 0.02 K/uL (0-0.2); COMPLETE YES; EOS % 0.5 %; HEMATOCRIT 40.9 % (42-52); IG% 0.2 %; LYMPH % 9.6 %; MEAN CELL VOLUME 93.8 fL (80-100); MEAN CORPUSCULAR HEMOGLOBIN 31.4 pg (25-34); MEAN CORPUSCULAR HGB CONC 33.5 g/dl (32-36); MEAN PLATELET VOLUME 11.2 fL (7.4-10.4); MONO % 6.6 %; NEUT % 82.9 %; PLATELET COUNT 200 K/uL (130-400); RED BLOOD COUNT 4.36 M/uL (4.7-6.1)
[2016-08-11] MEDS: DOCUSATE SODIUM 100 MG CAP PO SCH ×2 (08:16→20:09)
[2016-08-11] MEDS: CITALOPRAM 20 MG TAB PO SCH (08:16)
[2016-08-11] MEDS: CARBIDOPA/LEVODOPA 25/100MG TAB PO SCH ×3 (08:17→20:09)
[2016-08-11] MEDS: TAMSULOSIN HCL 0.4 MG CAP PO SCH (08:17)
[2016-08-11] MEDS: LISINOPRIL 10 MG TAB PO SCH (08:24)
[2016-08-11 08:38] LABS: BUN/CREATININE RATIO 15.2 (10-20); CREATININE 0.77 mg/dl (0.60-1.40); POTASSIUM 4.1 mmol/L (3.5-5.1)
[2016-08-11 08:52] LABS: CALCIUM 8.9 mg/dl (8.5-10.1)
--- NOTE | 2016-08-11 08:58 | Progress Note ---
Internal Med Progress Note Date of Service: Aug 11, 2016. Provider Documentation: SUBJECTIVE: Patient was very agitated overnight. Biting, kicking. Today morning, calmer. Had some of his breakfast Denies any pain. OBJECTIVE: Vital Signs-as noted below Exam: General-Refuses to open his eyes on command, disoriented x 3, calm and seems comfortable now Neck-Supple Lungs-AEBE decreased, no wheezing, rhochi, rales Heart-S1, S2 normal Extremities-No edema Neuro-Tremors + Gait abnormal Lab data as noted below. Diagnostic Radiology C-SPINE CT IMPRESSION: No fractures within the cervical spine. Degenerative change. CT HEAD IMPRESSION: No acute intracranial abnormality. Atrophy and microvascular ischemic changes. Old bilateral basal ganglia lacunar infarcts which are new from the prior study. CXR IMPRESSION: Negative chest EKG EKG: sinus kristine at [address] and T wave changes in lateral leads; no significant changes noted when compared with EKG from 07/25/16 ASSESSMENT & PLAN: Assessment and Plan : INCREASING BEHAVIORAL DISTURBANCE (AGITATION) WITH H/O PROGRESSIVE PARKINSON'S AND DEMENTIA: Has been on hospice care for 2 weeks, but was sent to ER for severe agitation- banging his head at the [place]. Multiple falls, ER admissions in past for similar reason. Discussed with daughter, would want to continue with hospice care, but would need a facility which can provide his needs due to worsening functional status with progressive parkinsons and dementia -Recently, seroquel, aricept were discontinued 07/25/16 as he was placed on hospice care and risk of side effects -Continue with Remeron, Sinemet -Will discontinue xanax and start him on low dose zyprexa 2.5 mg q HS -Work up- CT head- CT spine- no acute abnormalities; UA- partially positive; CXR - no acute process, Labs- no acute abnormalities noted. HTN -BP elevated in ED; trending down -Was taken off medications 2 weeks ago when placed under hospice care -Will increase lisinopril to 10 mg . Goal of BP around 170s. No need for aggressive BP control. DYSLIPIDEMIA -diet-controlled DVT PROPHYLAXIS -subq Lovenox - Will discontinue- on hospice care CODE STATUS -DNR per discussion with patient's daughter at bedside upon admission -Hospice care per daughter. DISPO -Had a detailed discussion with daughter about goals of care. DNR/DNI confirmed. Would want to continue with hospice care, but wants to send him to a facility which could take care of his needs given his progressive parkinsons and dementia. Would want to be in a facility where he could be kept comfortable under hospice care for the rest of his life and not bring him back to ED/Hospitals. SS consulted. Vital Signs: Date Time Temp Pulse Resp B/P Pulse Ox O2 Delivery O2 Flow Rate FiO2 08/11/16 01:30 Room Air 08/10/16 22:36 37.1 15 177/51 91 Room Air 08/10/16 22:11 37.1 54 15 177/51 Room Air 08/10/16 21:20 56 12 178/87 100 Room Air 08/10/16 19:46 57 08/10/16 19:30 58 16 169/87 98 Room Air 08/10/16 17:35 63 18 167/83 100 Room Air 08/10/16 16:38 202/72 08/10/16 16:31 66 22 207/90 100 Room Air 08/10/16 15:35 58 08/10/16 15:34 96 Room Air 08/10/16 15:34 96 Room Air 08/10/16 15:22 36.7 96 17 140/106 96 Room Air Lab Results: Results Past 24 Hours Test 08/10/16 15:35 08/10/16 15:43 08/11/16 06:30 08/11/16 07:12 Range/Units White Blood Count 7.70 8.30 4.8-10.8 K/uL Red Blood Count 3.97 4.36 4.7-6.1 M/uL Hemoglobin 12.3 13.7 14.0-18.0 g/dL Hematocrit 36.8 40.9 42-52 % Mean Corpuscular Volume 92.7 93.8 80-100 fL Mean Corpuscular Hemoglobin 31.0 31.4 25-34 pg Mean Corpuscular Hemoglobin Concent 33.4 33.5 32-36 g/dl Platelet Count 213 200 130-400 K/uL Mean Platelet Volume 11.0 11.2 7.4-10.4 fL Neutrophils (%) (Auto) 72.1 82.9 % Lymphocytes (%) (Auto) 14.2 9.6 % Monocytes (%) (Auto) 12.3 6.6 % Eosinophils (%) (Auto) 0.8 0.5 % Basophils (%) (Auto) 0.3 0.2 % Neutrophils # (Auto) 5.56 6.87 1.4-6.5 K/uL Lymphocytes # (Auto) 1.09 0.80 1.2-3.4 K/uL Monocytes # (Auto) 0.95 0.55 0.11-0.59 K/uL Eosinophils # (Auto) 0.06 0.04 0-0.5 K/uL Basophils # (Auto) 0.02 0.02 0-0.2 K/uL RDW Standard Deviation 50.0 49.5 36.4-46.3 fL RDW Coefficient of Variation 14.7 14.5 11.5-14.5 % Immature Granulocyte % (Auto) 0.3 0.2 % Immature Granulocyte # (Auto) 0.02 0.02 0.00-0.02 K/uL Prothrombin Time 11.3 9.0-12.0 SECONDS Prothromb Time International Ratio 1.1 0.9-1.1 Activated Partial Thromboplast Time 25.2 21.0-31.0 SECONDS Partial Thromboplastin Ratio 1.0 Sodium Level 143 140 136-145 mmol/L Potassium Level 4.0 4.1 3.5-5.1 mmol/L Chloride Level 108 104 98-107 mmol/L Carbon Dioxide Level 28 28 21-32 mmol/L Anion Gap 7.0 8.0 3-11 mmol/L Blood Urea Nitrogen 17 12 7-18 mg/dl Creatinine 0.89 0.77 0.60-1.40 mg/dl Est Creatinine Clear Calc Drug Dose 57.8 66.9 ml/min Estimated GFR () 92.3 97.9 Estimated GFR (Non- 79.6 84.5 BUN/Creatinine Ratio 18.7 15.2 10-20 Random Glucose 100 89 70-99 mg/dl Calcium Level 8.9 8.5-10.1 mg/dl Phosphorus Level 2.3 2.5-4.9 mg/dl Magnesium Level 2.0 1.8-2.4 mg/dl Total Bilirubin 1.0 0.2-1 mg/dl Direct Bilirubin 0.3 0-0.2 mg/dl Aspartate Amino Transf (AST/SGOT) 20 15-37 U/L Alanine Aminotransferase (ALT/SGPT) 10 12-78 U/L Alkaline Phosphatase 105 45-117 U/L Total Creatine Kinase 167 39-308 U/L Creatine Kinase MB 4.7 0.5-3.6 ng/ml Creatine Kinase MB Ratio 2.8 0-3.0 Troponin I < 0.015 0-0.045 ng/ml Total Protein 6.0 6.4-8.2 gm/dl Albumin 3.4 3.4-5.0 gm/dl Lipase 68 73-393 U/L Thyroid Stimulating Hormone (TSH) 1.100 0.300-4.500 uIu/ml Bedside Glucose 92 70-99 mg/dl Urine Color YELLOW Urine Appearance CLOUDY CLEAR Urine pH 7.5 4.5-7.5 Urine Specific [place] 1.016 1.000-1.030 Urine Protein NEG NEG Urine Glucose (UA) NEG NEG Urine Ketones 1+ NEG Urine Occult Blood 3+ NEG Urine Nitrite NEG NEG Urine Bilirubin NEG NEG Urine Urobilinogen NEG NEG Urine Leukocyte Esterase SMALL NEG Urine WBC (Auto) 5-10 0-5 /hpf Urine RBC (Auto) >30 0-4 /hpf Urine Hyaline Casts (Auto) 1-5 0-5 /lpf Urine Epithelial Cells (Auto) 20-30 0-5 /lpf Urine Bacteria (Auto) NEG NEG
[2016-08-11] MEDS ORDERED: ENOXAPARIN 40 MG/0.4 ML SYR SQ SCH (09:00)
[2016-08-11] MEDS ORDERED: ASPIRIN 81 MG ECTAB PO SCH (09:00)
[2016-08-11] MEDS ORDERED: LISINOPRIL 2.5 MG TAB PO SCH (09:00)
[2016-08-11] MEDS ORDERED: ALPRAZOLAM 0.5 MG TAB PO SCH (14:00)
[2016-08-11 15:52] VITALS: BP 90/62; PULSE 55; TEMP 36.8; O2SAT 94
[2016-08-11 15:56] VITALS: O2SAT 94
[2016-08-11] MEDS: OLANZAPINE 2.5 MG TAB PO SCH (20:09)
[2016-08-11 23:17] VITALS: BP 147/62; PULSE 53; TEMP 36.4; O2SAT 95
[2016-08-12 07:05] VITALS: BP 172/93; PULSE 54; TEMP 36.6; O2SAT 96
[2016-08-12] MEDS: TAMSULOSIN HCL 0.4 MG CAP PO SCH (08:31)
[2016-08-12] MEDS: CARBIDOPA/LEVODOPA 25/100MG TAB PO SCH ×3 (08:31→20:43)
[2016-08-12] MEDS: DOCUSATE SODIUM 100 MG CAP PO SCH ×2 (08:31→20:43)
[2016-08-12] MEDS: CITALOPRAM 20 MG TAB PO SCH (08:31)
[2016-08-12] MEDS: LISINOPRIL 10 MG TAB PO SCH (08:32)
--- NOTE | 2016-08-12 09:04 | Progress Note ---
Internal Med Progress Note Date of Service: Aug 12, 2016. Provider Documentation: SUBJECTIVE: Patient is doing much better. More awake, calmer, cooperative, sitting up and being fed his breakfast. Overnight, no agitation , slept well per RN after starting zyprexa 2.5 mg yesterday night. Denies any pain, fever, chills, nausea, vomiting. OBJECTIVE: Vital Signs-as noted below Exam: General-Awake, alert, disoriented x 3 Neck-Supple Lungs-AEBE decreased, no wheezing, rhochi, rales Heart-S1, S2 normal Extremities-No edema Neuro-Tremors + Gait abnormal Lab data as noted below. Diagnostic Radiology C-SPINE CT IMPRESSION: No fractures within the cervical spine. Degenerative change. CT HEAD IMPRESSION: No acute intracranial abnormality. Atrophy and microvascular ischemic changes. Old bilateral basal ganglia lacunar infarcts which are new from the prior study. CXR IMPRESSION: Negative chest EKG EKG: sinus kristine at [address] and T wave changes in lateral leads; no significant changes noted when compared with EKG from 07/25/16 ASSESSMENT & PLAN: Assessment and Plan : INCREASING BEHAVIORAL DISTURBANCE (AGITATION) WITH H/O PROGRESSIVE PARKINSON'S AND DEMENTIA: Has been on hospice care for 2 weeks, but was sent to ER for severe agitation- banging his head at the [place]. Multiple falls, ER admissions in past for similar reason. Discussed with daughter, would want to continue with hospice care, but would need a facility which can provide his needs due to worsening functional status with progressive parkinsons and dementia -Recently, seroquel, aricept were discontinued 07/25/16 as he was placed on hospice care and risk of side effects -Continue with Remeron, Sinemet -Discontinued xanax on 08/11 and started him on low dose zyprexa 2.5 mg q HS and PRN --> Helped a lot and no more agitative episodes. -Work up- CT head- CT spine- no acute abnormalities; UA- partially positive; CXR - no acute process, Labs- no acute abnormalities noted. HTN -BP elevated in ED; trending down and in an acceptable range -Was taken off medications 2 weeks ago when placed under hospice care -Started lisinopril 10 mg. Goal of BP around 170s. No need for aggressive BP control. DYSLIPIDEMIA -Diet - controlled DVT PROPHYLAXIS -SQ Lovenox - Discontinued - On Hospice care CODE STATUS -DNR per discussion with patient's daughter at bedside upon admission -Hospice care per daughter. DISPO -Had a detailed discussion with daughter about goals of care on 08/11. DNR/DNI confirmed. Would want to continue with hospice care, but wants to send him to a facility which could take care of his needs given his progressive parkinsons and dementia. Would want to be in a facility where he could be kept comfortable under hospice care for the rest of his life and not bring him back to ED/Hospitals. SS consulted- [facility] OKAY TO DISCHARGE FROM [facility], AWAITING PLACEMENT. Vital Signs: Date Time Temp Pulse Resp B/P Pulse Ox O2 Delivery O2 Flow Rate FiO2 08/12/16 08:00 Room Air 08/12/16 07:05 36.6 54 18 172/93 96 Room Air 08/12/16 00:01 Room Air 08/11/16 23:17 36.4 53 20 147/62 95 Room Air 08/11/16 19:30 Room Air 08/11/16 15:56 94 Room Air 08/11/16 15:52 36.8 55 16 90/62 94 Room Air
[2016-08-12 15:27] VITALS: BP 99/49; PULSE 57; TEMP 36.3; O2SAT 95
[2016-08-12 16:00] VITALS: O2SAT 95
[2016-08-12] MEDS: OLANZAPINE 2.5 MG TAB PO SCH (20:43)
[2016-08-13] VITALS (14 sets, daily range): BP systolic 112–232; BP diastolic 61–94; PULSE 50–106; TEMP 36.3–37.4; O2SAT 85–98
[2016-08-13] MEDS ORDERED: LISINOPRIL 10 MG TAB PO ONE (00:53)
[2016-08-13] MEDS ORDERED: HydrALAZINE HCL 20 MG/ML VIAL IV. STA ×2 (02:28→04:20)
[2016-08-13] MEDS ORDERED: HydrALAZINE HCL 20 MG/ML VIAL ONE (04:37)
[2016-08-13] MEDS: OLANZAPINE 2.5 MG TAB PO PRN ×2 (04:40→21:03)
--- NOTE | 2016-08-13 06:56 | DIAGNOSTIC IMAGING REPORT ---
CHEST ONE VIEW PORTABLE CLINICAL HISTORY: Hypoxia. COMPARISON STUDY: Chest radiograph August 10, 2016. FINDINGS: The patient is rotated. There is no evidence of pulmonary edema. Cardiomediastinal silhouette is unremarkable. There is no pneumothorax or pleural effusion. There is possible opacity within the medial left lung base. IMPRESSION: Possible opacity within the medial left lung base which could reflect atelectasis or consolidation. Electronically signed by: Isaiah Ulrich M.D. 08/13/2016 6:54 AM Dictated Date/Time: 08/13/2016 6:52 AM
[2016-08-13] MEDS: DOCUSATE SODIUM 100 MG CAP PO SCH ×2 (08:14→20:46)
[2016-08-13] MEDS: CITALOPRAM 20 MG TAB PO SCH (08:14)
[2016-08-13] MEDS: TAMSULOSIN HCL 0.4 MG CAP PO SCH (08:15)
[2016-08-13] MEDS: CARBIDOPA/LEVODOPA 25/100MG TAB PO SCH ×3 (08:15→20:33)
[2016-08-13] MEDS: LISINOPRIL 10 MG TAB PO SCH (08:15)
--- NOTE | 2016-08-13 09:35 | Progress Note ---
Internal Med Progress Note Date of Service: Aug 13, 2016. Provider Documentation: SUBJECTIVE: Patient was a bit agitated overnight. Calmer today Denies any pain, fever, chills, nausea, vomiting. OBJECTIVE: Vital Signs-as noted below Exam: General-Disoriented x 3 Neck-Supple Lungs-AEBE decreased, no wheezing, rhochi, rales Heart-S1, S2 normal Extremities-No edema Neuro-Tremors + Gait abnormal Lab data as noted below. Diagnostic Radiology C-SPINE CT IMPRESSION: No fractures within the cervical spine. Degenerative change. CT HEAD IMPRESSION: No acute intracranial abnormality. Atrophy and microvascular ischemic changes. Old bilateral basal ganglia lacunar infarcts which are new from the prior study. CXR IMPRESSION: Negative chest EKG EKG: sinus kristine at [address] and T wave changes in lateral leads; no significant changes noted when compared with EKG from 07/25/16 ASSESSMENT & PLAN: Assessment and Plan : INCREASING BEHAVIORAL DISTURBANCE (AGITATION) WITH H/O PROGRESSIVE PARKINSON'S AND DEMENTIA: Has been on hospice care for 2 weeks, but was sent to ER for severe agitation- banging his head at the [place]. Multiple falls, ER admissions in past for similar reason. Discussed with daughter, would want to continue with hospice care, but would need a facility which can provide his needs due to worsening functional status with progressive parkinsons and dementia -Recently, seroquel, aricept were discontinued 07/25/16 as he was placed on hospice care and risk of side effects -Continue with Remeron, Sinemet -Discontinued xanax on 08/11 and started him on low dose zyprexa 2.5 mg q HS and PRN on 08/12/16 --> Helped a lot and no more agitative episodes. -Work up- CT head- CT spine- no acute abnormalities; UA- partially positive; CXR - no acute process, Labs- no acute abnormalities noted. HTN -BP elevated with increased agitation; trending down and in an acceptable range -Was taken off medications 2 weeks ago when placed under hospice care -Started lisinopril 10 mg--> Increase to 20 mg daily. Goal of BP around 170s. No need for aggressive BP control. DYSLIPIDEMIA -Diet - controlled - on hospice care DVT PROPHYLAXIS -SQ Lovenox - Discontinued - On Hospice care CODE STATUS -DNR per discussion with patient's daughter at bedside upon admission -Hospice care per daughter. DISPO -Had a detailed discussion with daughter about goals of care on 08/11. DNR/DNI confirmed. Would want to continue with hospice care, but wants to send him to a facility which could take care of his needs given his progressive parkinsons and dementia. Would want to be in a facility where he could be kept comfortable under hospice care for the rest of his life and not bring him back to ED/Hospitals. SS consulted- [facility] for [facility] OKAY TO DISCHARGE FROM [facility], AWAITING PLACEMENT. Vital Signs: Date Time Temp Pulse Resp B/P Pulse Ox O2 Delivery O2 Flow Rate FiO2 08/13/16 08:00 Nasal Cannula 2.0 08/13/16 06:59 36.7 50 18 148/61 98 08/13/16 06:36 158/74 08/13/16 05:29 183/65 08/13/16 04:07 232/78 08/13/16 02:29 230/94 08/13/16 01:16 229/82 08/13/16 00:50 50 97 Nasal Cannula 2.0 08/13/16 00:43 36.3 55 18 228/76 85 Room Air 08/13/16 00:00 97 Nasal Cannula 2.0 08/12/16 16:00 95 Room Air 08/12/16 15:27 36.3 57 16 99/49 95 Room Air
[2016-08-13] MEDS ORDERED: HydrALAZINE HCL 20 MG/ML VIAL IV. PRN (09:45)
[2016-08-13] MEDS ORDERED: NURSING VERBAL MED ORDER ONE (10:30)
[2016-08-13] MEDS ORDERED: POLYETHYLENE (MIRALAX) 17 GM PACK PO PRN (10:30)
[2016-08-13] MEDS: OLANZAPINE 2.5 MG TAB PO SCH (20:33)
[2016-08-14] VITALS: O2SAT 95
[2016-08-14 04:00] VITALS: O2SAT 95
[2016-08-14] MEDS: TAMSULOSIN HCL 0.4 MG CAP PO SCH (07:51)
[2016-08-14] MEDS: CARBIDOPA/LEVODOPA 25/100MG TAB PO SCH ×2 (07:51→14:15)
[2016-08-14] MEDS: OLANZAPINE 2.5 MG TAB PO PRN (07:51)
[2016-08-14] MEDS: CITALOPRAM 20 MG TAB PO SCH (07:52)
[2016-08-14] MEDS: DOCUSATE SODIUM 100 MG CAP PO SCH (07:52)
[2016-08-14 08:00] VITALS: BP 142/60; PULSE 59; TEMP 37; O2SAT 95
[2016-08-14] MEDS ORDERED: LISINOPRIL 20 MG TAB PO SCH (09:00)
[2016-08-14] MEDS ORDERED: ZYP25 PO ×2 (09:36)
[2016-08-14] MEDS ORDERED: HYDR-5688 PO (09:36)
[2016-08-14] MEDS ORDERED: LSN20 PO (09:36)
[2016-08-14] MEDS ORDERED: BISA10SU38 PR (09:36)
[2016-08-14] MEDS ORDERED: BISACODYL 10 MG SUPP PR STA (09:36)
--- NOTE | 2016-08-14 10:05 | Discharge Instructions ---
Discharge Instructions Date of Service Aug 14, 2016. Admission Reason for Admission: Agitation Discharge Discharge Diagnosis / Problem: 1. Advanced dementia Discharge Goals Goal(s): Decrease discomfort, Specific goals (Control agitative behavior) Activity Recommendations Activity Limitations: per Instructions/Follow-up section (as tolerated) . Instructions / Follow-Up Instructions / Follow-Up MEDICATION CHANGES: 1. Added zyprexa 2.5 mg q HS to control agitation 2. Discontinued Xanax 3. Added l isinopril 20 mg daily due to BP > 200 . No need for aggressive BP control- goal is to stay around 160-170s as BP has always been high FOLLOW UP 1. With hospice team Current Hospital Diet Patient's current hospital diet: AHA Diet (Heart Healthy) Discharge Diet Recommended Diet: Regular Diet Pending Studies Studies pending at discharge: no Medical Emergencies . Who to Call and When: Medical Emergencies: If at any time you feel your situation is an emergency, please call 911 immediately. . Non-Emergent Contact Non-Emergency issues call your: Specialist (Hospice team) . . "Provider Documentation" section prepared by Iza Hidalgo. . VTE Core Measure Inpt VTE Proph given/why not?: Contraindicated (hospice care)
--- NOTE | 2016-08-14 10:07 | Progress Note ---
Internal Med Progress Note Date of Service: Aug 14, 2016. Provider Documentation: SUBJECTIVE: Patient was a bit agitated overnight. Calmer today Denies any pain, fever, chills, nausea, vomiting. OBJECTIVE: Vital Signs-as noted below Exam: General-Disoriented x 3 Neck-Supple Lungs-AEBE decreased, no wheezing, rhochi, rales Heart-S1, S2 normal Extremities-No edema Neuro-Tremors + Gait abnormal Lab data as noted below. Diagnostic Radiology C-SPINE CT IMPRESSION: No fractures within the cervical spine. Degenerative change. CT HEAD IMPRESSION: No acute intracranial abnormality. Atrophy and microvascular ischemic changes. Old bilateral basal ganglia lacunar infarcts which are new from the prior study. CXR IMPRESSION: Negative chest EKG EKG: sinus kristine at [address] and T wave changes in lateral leads; no significant changes noted when compared with EKG from 07/25/16 ASSESSMENT & PLAN: Assessment and Plan : INCREASING BEHAVIORAL DISTURBANCE (AGITATION) WITH H/O PROGRESSIVE PARKINSON'S AND DEMENTIA: Has been on hospice care for 2 weeks, but was sent to ER for severe agitation- banging his head at the [place]. Multiple falls, ER admissions in past for similar reason. Discussed with daughter, would want to continue with hospice care, but would need a facility which can provide his needs due to worsening functional status with progressive parkinsons and dementia -Recently, seroquel, aricept were discontinued 07/25/16 as he was placed on hospice care and risk of side effects -Continue with Remeron, Sinemet,, Celexa -Discontinued xanax on 08/11 and started him on low dose zyprexa 2.5 mg q HS -- > Agitation under control . As already on sinemet, celexa, remeron--> started only a low dose of zyprexa due to risk of side effects with combination -Work up- CT head- CT spine- no acute abnormalities; UA- partially positive; CXR - no acute process, Labs- no acute abnormalities noted. HTN -BP elevated with increased agitation; trending down and in an acceptable range -Was taken off medications 2 weeks ago when placed under hospice care -Started lisinopril 10 mg--> Increase to 20 mg daily. Goal of BP around 170s. No need for aggressive BP control. CONSTIPATION Colace BID, Dulcolax suppository given. -No BM DYSLIPIDEMIA -Diet - controlled - on hospice care DVT PROPHYLAXIS -SQ Lovenox - Discontinued - On Hospice care CODE STATUS -DNR per discussion with patient's daughter at bedside upon admission -Hospice care per daughter. DISPO -Had a detailed discussion with daughter about goals of care on 08/11. DNR/DNI confirmed. Would want to continue with hospice care, but wants to send him to a facility which could take care of his needs given his progressive parkinsons and dementia. Would want to be in a facility where he could be kept comfortable under hospice care for the rest of his life and not bring him back to ED/Hospitals. SS consulted- Referral for [facility] placed--> Bed available OKAY TO DISCHARGE TO [facility] UNDER HOSPICE CARE Vital Signs: Date Time Temp Pulse Resp B/P Pulse Ox O2 Delivery O2 Flow Rate FiO2 08/14/16 08:00 37.0 59 18 142/60 95 Room Air 08/14/16 08:00 95 Room Air 08/14/16 04:00 95 Room Air 08/14/16 00:00 95 Room Air 08/13/16 23:39 37.4 91 18 92 Room Air 08/13/16 19:40 36.8 78 20 112/66 90 Room Air 08/13/16 16:00 95 Room Air 08/13/16 15:04 36.4 58 20 174/78 95 Room Air 08/13/16 14:13 106 91
--- NOTE | 2016-08-14 10:10 | Discharge Summary ---
Discharge Summary Date of Service Aug 14, 2016. Discharge Summary Admission Date: Aug 10, 2016 at 20:49 Discharge Date: Aug 14, 2016 Discharge Disposition: residential facility ([facility] with hospice care ) Principal Diagnosis: 1. Advanced dementia with behavioral disturbance 2. Falls 3. Uncontrolled HTN 4. Parkinsons disease dementia 5. Hospice care 6. Constipation Secondary Diagnoses/Problems: 1.Dyslipidemia Procedures: cxr ct head ct cervical spine Consultations: None Pending Studies/Follow-Up: . Instructions / Follow-Up Instructions / Follow-Up MEDICATION CHANGES: 1. Added zyprexa 2.5 mg q HS to control agitation 2. Discontinued Xanax 3. Added l isinopril 20 mg daily due to BP > 200 . No need for aggressive BP control- goal is to stay around 160-170s as BP has always been high FOLLOW UP 1. With hospice team Medication Reconciliation New Medications: Bisacodyl (Dulcolax) 10 Mg Sup 1 SUPP OR BID for constipation, #10 SUP Lisinopril (Lisinopril) 20 Mg Tab 20 MG PO QAM for 30 Days, #30 TAB Olanzapine (Olanzapine) 2.5 Mg Tab 2.5 MG PO HS for 30 Days, TAB Continued Medications: Acetaminophen (Tylenol) 500 Mg Tab 1000 MG PO Q8 PRN for Pain or Fever, TAB max of 3grams in 24 hours\\ Cholecalciferol (Vitamin D3) 1,000 Unit Tab 1000 UNITS PO DAILY, 3 Refills Citalopram Hydrobromide (Celexa) 20 Mg Tab 20 MG PO QAM, TAB Docusate Sodium (Docusate Sodium) 100 Mg Cap 1 CAP PO BID Fluconazole (Diflucan) 200 Mg Tab 200 MG PO WK takes on tuesdays Hydrocodone/Acetaminophen 5MG/325MG (Dawson 5MG/325MG) Tab 1 TABLET PO Q6, #30 (This prescription has been renewed) max 3gm apap in 24 hrs max 4 tablets per day Ketotifen Fumarate (Ophth) (Zaditor 0.025% Oph) 0.025 % Jluis 1 DROP OPB BID PRN for IRRITATION, BTL Levodopa/Carbidopa (Sinemet 25MG/100MG) 1 Ea Tab 2 TAB PO TID, TAB takes at 07am, 11am, and 1700pm Mirtazapine Soltab (Remeron Soltab) 15 Mg Soltab 15 MG PO HS, TAB Saline (Saline Nasal Warren Infant) 0.65 % Spr 1 SPRY KRISTINA TID PRN for DRYNESS Selenium Sulfide (Selsun Blue) 1 % Sha 1 APPLN EXT 2XWK USE TO WASH FACE, NECK, AND SCALP Tamsulosin Hcl (Flomax) 0.4 Mg Cap 0.4 MG PO QAM Discontinued Medications: Alprazolam (Xanax) 0.5 Mg Tab 0.5 MG PO DAILY@1400, TAB Alprazolam (Xanax) 0.25 Mg Tab 0.25 MG PO DAILY@0800, TAB take an additional tablet every 8 hours as needed for anxiety Alprazolam (Xanax) 0.25 Mg Tab 0.25 MG PO Q8 PRN for Anxiety, TAB Admission Information HPI (per Admitting provider): This is an 81 y/o male with PMHx of Parkinson's Dz, HTN, Dyslipidemia and other problems as outlined below who presents to the ED from the [facility] due to increasing generalized weakness for 1 week. History is obtained from daughter at bedside as patient is unable to provide history due to dementia. Per daughter, patient was placed on hospice 2 weeks ago to assist with additional care at the [facility]. Patient has been slowly declining from his Parkinson's however daughter has noticed a significantly decline in the past month. This week patient was noted to be more weak than usual. Pt refuses to use assistive devices for ambulation and reportedly fell 3 times today. In addition, patient has had episodes of aggression over the past couple days. Today when he fell, he refused to let nursing staff help him up and began banging his head on the table. Pt's medications were recently adjusted. Seroquel , Aricept, Lipitor and ASA were all discontinued on 07/25/16. He has not been started on any new medications. Unable to obtain ROS due to patient's dementia. In the ED, BP is elevated. Pt is afebrile with no leukocytosis. HgB 12.3. Trop negative and EKG unchanged. C-spine and Head CT are negative. CXR negative for acute process. Pt is stable and will be admitted. Physical Exam (per Admitting): General Appearance: WD/WN, no apparent distress, + pertinent finding (Pt is laying in position in bed with daughter at bedside) Head: normocephalic, atraumatic Eyes: normal inspection ENT: hearing grossly normal Neck: supple Respiratory/Chest: chest non-tender, lungs clear, + decreased breath sounds (bilateral bases) Cardiovascular: regular rate, rhythm, no edema, no murmur Abdomen/GI: normal bowel sounds, non tender, soft Back: normal inspection Extremities/Musculoskelatal: normal inspection, no calf tenderness, no pedal edema Neurologic/Psych: + pertinent finding (mumbling nonsensical speech) Skin: normal color, warm/dry Hospital Course Assessment and Plan : INCREASING BEHAVIORAL DISTURBANCE (AGITATION) WITH H/O PROGRESSIVE PARKINSON'S AND DEMENTIA: Has been on hospice care for 2 weeks, but was sent to ER for severe agitation- banging his head at the [place]. Multiple falls, ER admissions in past for similar reason. Discussed with daughter, would want to continue with hospice care, but would need a facility which can provide his needs due to worsening functional status with progressive parkinsons and dementia -Recently, seroquel, aricept were discontinued 07/25/16 as he was placed on hospice care and risk of side effects -Continue with Remeron, Sinemet,, Celexa -Discontinued xanax on 08/11 and started him on low dose zyprexa 2.5 mg q HS -- > Agitation under control . As already on sinemet, celexa, remeron--> started only a low dose of zyprexa due to risk of side effects with combination -Work up- CT head- CT spine- no acute abnormalities; UA- partially positive; CXR - no acute process, Labs- no acute abnormalities noted. HTN -BP elevated with increased agitation; trending down and in an acceptable range -Was taken off medications 2 weeks ago when placed under hospice care -Started lisinopril 10 mg--> Increase to 20 mg daily. Goal of BP around 170s. No need for aggressive BP control. CONSTIPATION Colace BID, Dulcolax suppository given. -No BM DYSLIPIDEMIA -Diet - controlled - on hospice care DVT PROPHYLAXIS -SQ Lovenox - Discontinued - On Hospice care CODE STATUS -DNR per discussion with patient's daughter at bedside upon admission -Hospice care per daughter. DISPO -Had a detailed discussion with daughter about goals of care on 08/11. DNR/DNI confirmed. Would want to continue with hospice care, but wants to send him to a facility which could take care of his needs given his progressive parkinsons and dementia. Would want to be in a facility where he could be kept comfortable under hospice care for the rest of his life and not bring him back to ED/Hospitals. SS consulted- Referral for [facility]--> Bed available OKAY TO DISCHARGE TO [facility] UNDER HOSPICE CARE Total time spent on discharge = 32 minutes This includes examination of the patient, discharge planning, medication reconciliation, and communication with other providers. Discharge Instructions Activity Recommendations Activity Limitations: per Instructions/Follow-up section (as tolerated) . Instructions / Follow-Up Instructions / Follow-Up MEDICATION CHANGES: 1. Added zyprexa 2.5 mg q HS to control agitation 2. Discontinued Xanax 3. Added l isinopril 20 mg daily due to BP > 200 . No need for aggressive BP control- goal is to stay around 160-170s as BP has always been high FOLLOW UP 1. With hospice team Current Hospital Diet Patient's current hospital diet: AHA Diet (Heart Healthy) Discharge Diet Recommended Diet: Regular Diet Pending Studies Studies pending at discharge: no Medical Emergencies . Who to Call and When: Medical Emergencies: If at any time you feel your situation is an emergency, please call 911 immediately. . Non-Emergent Contact Non-Emergency issues call your: Specialist (Hospice team) . . "Provider Documentation" section prepared by Iza Hidalgo. . VTE Core Measure Inpt VTE Proph given/why not?: Contraindicated (hospice care)
[2016-08-14 10:26] VITALS: BP 142/60; PULSE 59; TEMP 37; O2SAT 95
[2016-08-14] MEDS ORDERED: [UNRECOGNIZED DRUG - CODE] SL (10:40)
== END 2016-08-14 17:11 ==
LOC: ENRESERVTM → ENRESERVDT → EDBD 15:10 → C.EDB 15:11 → C.MS2W 20:49
PROVIDERS: ADMIT Internal Medicine; ATTEND Internal Medicine
DX: F03.91 Unspecified dementia, unspecified severity, with behavioral disturbance (principal); G20 Parkinson's disease; Z91.81 History of falling; Z51.5 Encounter for palliative care; K59.00 Constipation, unspecified; I10 Essential (primary) hypertension; E78.5 Hyperlipidemia, unspecified; Z66 Do not resuscitate; Z87.891 Personal history of nicotine dependence; Z86.73 Personal history of transient ischemic attack (TIA), and cerebral infarction without residual deficits

== ENCOUNTER → 2016-08-22 | Outpatient (CLI) | payer OTHER ==
[~2016-08-22] MED LIST changes: -ALPR-411 PO; -ALPR0.25 PO; -ASPI1TAB83 PO; +BISA10SU38 PR; -DONE10TA12 PO; -FLUC200T PO; -HYDR-5688 PO; -LPT/40 PO; +LSN20 PO; -PIMA17TA PO; -QUET1TAB32 PO; -QUET1TAB34 PO; +ZYP25 PO; +[UNRECOGNIZED DRUG - CODE] SL
[2016-08-22 10:18] LABS: BLOOD UREA NITROGEN 23 mg/dl (7-18); BUN/CREATININE RATIO 25.2 (10-20); CALCIUM 9.1 mg/dl (8.5-10.1); CARBON DIOXIDE 29 mmol/L (21-32); CHLORIDE 109 mmol/L (98-107); GLUCOSE 90 mg/dl (70-99); SODIUM 144 mmol/L (136-145)
== END | disposition home or self-care (01) ==
LOC: C.LABCC 09:28
PROVIDERS: ATTEND Internal Medicine
DX: I10 Essential (primary) hypertension (principal)

== ENCOUNTER → 2016-10-15 | Outpatient (CLI) | payer OTHER ==
[~2016-10-15] MED LIST changes: -BISA10SU38 PR
[2016-10-15 11:02] LABS: BLOOD UREA NITROGEN 24 mg/dl (7-18); BUN/CREATININE RATIO 30.5 (10-20); CARBON DIOXIDE 29 mmol/L (21-32); CHLORIDE 107 mmol/L (98-107); CREATININE 0.79 mg/dl (0.60-1.40); GLUCOSE 73 mg/dl (70-99); SODIUM 143 mmol/L (136-145)
[2016-10-15 11:17] LABS: CALCIUM 9.2 mg/dl (8.5-10.1)
== END ==
LOC: C.LABCC 08:57
PROVIDERS: ATTEND Internal Medicine
DX: I10 Essential (primary) hypertension (principal)

== ENCOUNTER → 2016-11-07 | Outpatient (CLI) | payer OTHER ==
[2016-11-08 11:05] LABS: MANUAL MICROSCOPIC REQUIRED? YES; URINE APPEARANCE TURBID (CLEAR); URINE BILIRUBIN NEG (NEG); URINE COLOR RED; URINE NITRITE NEG (NEG); URINE PH 6.5 (4.5-7.5); URINE SPECIFIC GRAVITY 1.015 (1.000-1.030); UROBILINOGEN NEG (NEG)
[2016-11-08 11:06] LABS: REVIEW REQ? NO
[2016-11-08 11:09] LABS: URINE RBC >30 /hpf (0-4); URINE WBC >30 /hpf (0-5)
[2016-11-08 11:11] LABS: URINE BACTERIA 1+ (NEG)
== END ==
LOC: C.LABCC 10:34
PROVIDERS: ATTEND Internal Medicine
DX: R41.82 Altered mental status, unspecified (principal); D63.8 Anemia in other chronic diseases classified elsewhere

== ENCOUNTER → 2016-11-08 | Outpatient (CLI) | payer OTHER ==
[2016-11-08 11:23] LABS: BASO % 0.4 %; BASO ABS # 0.03 K/uL (0-0.2); COMPLETE YES; HEMATOCRIT 39.4 % (42-52); IG% 0.3 %; LYMPH % 19.9 %; MEAN CELL VOLUME 95.6 fL (80-100); MEAN CORPUSCULAR HEMOGLOBIN 30.8 pg (25-34); MEAN CORPUSCULAR HGB CONC 32.2 g/dl (32-36); MEAN PLATELET VOLUME 11.4 fL (7.4-10.4); MONO % 9.4 %; PLATELET COUNT 201 K/uL (130-400); RED BLOOD COUNT 4.12 M/uL (4.7-6.1); WHITE BLOOD COUNT 7.02 K/uL (4.8-10.8)
== END ==
LOC: C.LABCC 10:55
PROVIDERS: ATTEND Internal Medicine
DX: D63.8 Anemia in other chronic diseases classified elsewhere (principal)

== ENCOUNTER → 2017-01-21 | Outpatient (CLI) | payer OTHER ==
[2017-01-21 08:25] LABS: BASO % 0.4 %; BASO ABS # 0.03 K/uL (0-0.2); COMPLETE YES; EOS % 3.7 %; HEMATOCRIT 42.5 % (42-52); IG% 0.5 %; LYMPH % 28.7 %; LYMPH ABS # 2.09 K/uL (1.2-3.4); MEAN CELL VOLUME 94.4 fL (80-100); MEAN CORPUSCULAR HEMOGLOBIN 30.9 pg (25-34); MEAN CORPUSCULAR HGB CONC 32.7 g/dl (32-36); MONO % 9.8 %; NEUT % 56.9 %; PLATELET COUNT 185 K/uL (130-400); WHITE BLOOD COUNT 7.28 K/uL (4.8-10.8)
[2017-01-21 08:39] LABS: FERRITIN 157.4 ng/ml (8.0-388.0)
== END ==
LOC: C.LABCC 08:05
PROVIDERS: ATTEND Internal Medicine
DX: I10 Essential (primary) hypertension (principal); D64.9 Anemia, unspecified

== ENCOUNTER → 2017-05-23 | Outpatient (CLI) | payer OTHER ==
[2017-05-24 00:23] LABS: INFLUENZA B ANTIGEN Neg for Influ B (NEG)
== END ==
LOC: C.LABCC 21:00
PROVIDERS: ATTEND Internal Medicine
DX: R50.9 Fever, unspecified (principal)

== ENCOUNTER → 2017-05-24 | Outpatient (CLI) | payer OTHER ==
[2017-05-24 08:48] LABS: BASO % 0.2 %; BASO ABS # 0.04 K/uL (0-0.2); EOS % 0.5 %; HEMATOCRIT 38.9 % (42-52); HEMOGLOBIN 12.9 g/dL (14.0-18.0); IG# 0.07 K/uL (0.00-0.02); LYMPH % 8.3 %; LYMPH ABS # 1.62 K/uL (1.2-3.4); MEAN CELL VOLUME 92.4 fL (80-100); MEAN CORPUSCULAR HEMOGLOBIN 30.6 pg (25-34); MEAN CORPUSCULAR HGB CONC 33.2 g/dl (32-36); MEAN PLATELET VOLUME 10.8 fL (7.4-10.4); MONO % 9.9 %; MONO ABS # 1.94 K/uL (0.11-0.59); NEUT % 80.7 %; PLATELET COUNT 260 K/uL (130-400); RED CELL DISTRIBUTION WIDTH SD 47.2 fL (36.4-46.3); WHITE BLOOD COUNT 19.57 K/uL (4.8-10.8)
[2017-05-24 08:59] LABS: ALBUMIN 2.9 gm/dl (3.4-5.0); ALT/SGPT 31 U/L (12-78); BLOOD UREA NITROGEN 30 mg/dl (7-18); CALCIUM 8.4 mg/dl (8.5-10.1); CARBON DIOXIDE 26 mmol/L (21-32); CREATININE 1.12 mg/dl (0.60-1.40); GLUCOSE 110 mg/dl (70-99); POTASSIUM 4.1 mmol/L (3.5-5.1); SODIUM 137 mmol/L (136-145)
[2017-05-24 09:01] LABS: ALKALINE PHOSPHATASE 106 U/L (45-117); AST/SGOT 28 U/L (15-37); TOTAL PROTEIN 6.8 gm/dl (6.4-8.2)
== END ==
LOC: C.LABCC 08:27
PROVIDERS: ATTEND Internal Medicine
DX: R50.9 Fever, unspecified (principal)

== ENCOUNTER → 2017-11-27 | Outpatient (CLI) | payer OTHER ==
[~2017-11-27] MED LIST changes: +LISI-726 PO; -LSN20 PO
[2017-11-27 09:51] LABS: BASO % 0.5 %; BASO ABS # 0.03 K/uL (0-0.2); EOS % 2.2 %; EOS ABS # 0.13 K/uL (0-0.5); HEMATOCRIT 39.8 % (42-52); HEMOGLOBIN 13.1 g/dL (14.0-18.0); IG# 0.01 K/uL (0.00-0.02); LYMPH % 20.4 %; LYMPH ABS # 1.23 K/uL (1.2-3.4); MEAN CELL VOLUME 94.8 fL (80-100); MEAN CORPUSCULAR HEMOGLOBIN 31.2 pg (25-34); MEAN CORPUSCULAR HGB CONC 32.9 g/dl (32-36); MEAN PLATELET VOLUME 11.9 fL (7.4-10.4); MONO % 7.8 %; MONO ABS # 0.47 K/uL (0.11-0.59); NEUT % 68.9 %; NEUT ABS # 4.17 K/uL (1.4-6.5); PLATELET COUNT 196 K/uL (130-400); RED CELL DISTRIBUTION WIDTH CV 15.4 % (11.5-14.5); RED CELL DISTRIBUTION WIDTH SD 53.1 fL (36.4-46.3); WHITE BLOOD COUNT 6.04 K/uL (4.8-10.8)
[2017-11-27 10:20] LABS: ALKALINE PHOSPHATASE 71 U/L (45-117); ALT/SGPT 10 U/L (12-78); AST/SGOT 19 U/L (15-37); BLOOD UREA NITROGEN 22 mg/dl (7-18); CALCIUM 8.6 mg/dl (8.5-10.1); CARBON DIOXIDE 26 mmol/L (21-32); CREATININE 0.77 mg/dl (0.60-1.40); GLUCOSE 75 mg/dl (70-99); POTASSIUM 3.8 mmol/L (3.5-5.1); SODIUM 142 mmol/L (136-145); TOTAL PROTEIN 6.1 gm/dl (6.4-8.2)
== END ==
LOC: C.LABCC 09:01
PROVIDERS: ATTEND Internal Medicine
DX: R63.4 Abnormal weight loss (principal)

== ENCOUNTER → 2017-12-07 | Outpatient (CLI) | payer OTHER | LOC: C.LAB 07:05 | PROVIDERS: ATTEND Internal Medicine | DX: R00.1 Bradycardia, unspecified (principal); R11.10 Vomiting, unspecified ==

== ENCOUNTER → 2017-12-10 | Outpatient (CLI) | payer OTHER ==
[2017-12-10 09:22] LABS: BASO % 0.5 %; BASO ABS # 0.03 K/uL (0-0.2); EOS % 1.9 %; EOS ABS # 0.12 K/uL (0-0.5); HEMATOCRIT 43.8 % (42-52); HEMOGLOBIN 14.2 g/dL (14.0-18.0); IG# 0.01 K/uL (0.00-0.02); LYMPH % 25.8 %; LYMPH ABS # 1.64 K/uL (1.2-3.4); MEAN CELL VOLUME 97.6 fL (80-100); MEAN CORPUSCULAR HEMOGLOBIN 31.6 pg (25-34); MEAN CORPUSCULAR HGB CONC 32.4 g/dl (32-36); MEAN PLATELET VOLUME 12.8 fL (7.4-10.4); MONO % 8.6 %; MONO ABS # 0.55 K/uL (0.11-0.59); NEUT ABS # 4.01 K/uL (1.4-6.5); PLATELET COUNT 176 K/uL (130-400); RED CELL DISTRIBUTION WIDTH CV 15.2 % (11.5-14.5); RED CELL DISTRIBUTION WIDTH SD 54.1 fL (36.4-46.3); WHITE BLOOD COUNT 6.36 K/uL (4.8-10.8)
== END ==
LOC: C.LABCC 08:55
PROVIDERS: ATTEND Internal Medicine
DX: R00.1 Bradycardia, unspecified (principal); K92.0 Hematemesis